=== PATIENT | male | born 1960 | race American Indian/Alaskan Native ===

== ENCOUNTER 2016-10-14 14:56 | Inpatient (IN) | payer OTHER ==
[2016-10-14] MEDS ORDERED: NACL 0.9% 500 ML 500 ML IV ONE (16:11)
[2016-10-14] MEDS ORDERED: ZOFRAN ONE (16:22)
[2016-10-14] MEDS ORDERED: TYLENOL ONE (16:44)
--- NOTE | 2016-10-14 16:51 | Emergency Department Report ---
HPI - General Chief Complaint: Extremity Problem,Nontraumatic Time Seen by Provider: 10/14/16 16:23 - HPI HPI: This is a 56-year-old Afro-[place]onese male who presents to the emergency department from home with complaint of a progressively worsening left foot wound and increasing foot pain has been going on for the past week. The patient says it started off as a large callus but then was a small wound that has progressively opened up and started draining. The past few days the patient is felt slightly dizzy, diaphoretic and the patient had some vomiting in triage. He also has been feeling febrile although he did not check his temperature at home. Patient has a history of asthma, insulin-dependent diabetes. 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 He has a primary care doctor but cannot member the name currently. No recent travel or sick contacts at home. He has not taken anything for symptoms prior to presentation. ED Past Medical Hx - Past Medical History Previous Medical History?: Yes Hx Asthma: Yes Hx Dementia: Yes - Surgical History Past Surgical History?: Yes Additional Surgical History: L shoulder. L toe amputation - Social History Smoking Status: Never Smoker Substance Use Type: Alcohol - Medications Home Medications: Home Medications Medication Instructions Recorded Confirmed Last Taken Type Glimepiride [Amaryl] 1 mg PO BID 10/14/16 10/14/16 Unknown History Lovastatin [Altoprev] 40 mg PO QHS 10/14/16 10/14/16 Unknown History metFORMIN [Glucophage] 500 mg PO BID 10/14/16 10/14/16 Unknown History ED Review of Systems ROS: Stated complaint: LT FOOT WOUND Other details as noted in HPI Comment: All other systems reviewed and negative Constitutional: chills, diaphoresis Eyes: denies: eye pain, eye discharge, vision change ENT: denies: ear pain, throat pain Respiratory: denies: cough, shortness of breath, wheezing Cardiovascular: denies: chest pain, palpitations Gastrointestinal: vomiting. denies: abdominal pain, diarrhea Genitourinary: denies: urgency, dysuria Musculoskeletal: joint swelling, arthralgia Skin: lesions. denies: pruritus Neurological: other (dizziness). denies: headache Physical Exam - Physical Exam Vital Signs: Vital Signs 10/14/16 16:00 Temperature 103 F H Pulse Rate 119 H Respiratory 16 Rate Blood Pressure 105/65 O2 Sat by Pulse 96 Oximetry Physical Exam: GENERAL: The patient is well-developed well-nourished. HEENT: Normocephalic. Atraumatic. Extraocular motions are intact. Patient has moist mucous membranes. Pupils equal reactive to light bilaterally. NECK: Supple. Trachea is midline. CHEST/LUNGS: Clear to auscultation. There is no respiratory distress noted. HEART/CARDIOVASCULAR: Regular. There is no tachycardia. There is no gallop rub or murmur. ABDOMEN: Abdomen is soft, nontender. Patient has normal bowel sounds. There is no abdominal distention. SKIN: Skin is hot and patient has some mild diaphoresis. There is a open wound to the plantar medial portion of the left distal foot near the great toe. There is a circular opening that is about 3 cm in diameter with some surrounding pale tissue that could be callus versus abscess. There is some tissue seen coming out of the wound and the wound is malodorous. NEURO: The patient is awake, alert, and oriented. The patient is cooperative. The patient has no focal neurologic deficits. The patient has normal speech. MUSCULOSKELETAL: There is some tenderness to palpation to the left foot where the patient has a diabetic wound/ulcer. The pedal pulses are not palpable but are evident with pencil Doppler. Cap refill less than 2 seconds. ED Course Vital Signs 10/14/16 16:00 Temperature 103 F H Pulse Rate 119 H Respiratory 16 Rate Blood Pressure 105/65 O2 Sat by Pulse 96 Oximetry ED Medical Decision Making - Lab Data Result diagrams: 10/14/16 16:45 10/14/16 16:45 - EKG Data -: EKG Interpreted by Me EKG shows normal: sinus rhythm, axis, intervals, QRS complexes, ST-T waves (Non- specific ST-T waves) Rate: tachycardia (118 bpm) - EKG Data When compared to previous EKG there are: previous EKG unavailable Interpretation: nonspecific ST-T wave myrna (with tachycardia) - Radiology Data Radiology results: image reviewed interpreted by me: Chest x-ray did not show any acute process. Heart is normal shape and size. No effusions. No pneumothorax. No signs of pneumonia seen. X-ray of the left foot shows a soft tissue defect consistent with his ulcerating wound. There is some gas seen throughout the soft tissue. No obvious signs of osteomyelitis. - Medical Decision Making 56-year-old male presents with a one-week history of present worsening wound to the left foot that appears to have become infected and causing sepsis. Patient has a fever of 103 Fahrenheit, some tachycardia. Labs show a mild leukocytosis , elevation and the lactic acid level. X-rays were done that shows concern for a gas-forming organism. No obvious signs of osteomyelitis. Blood cultures and wound cultures sent. Patient started on vancomycin, Zosyn and clindamycin. Patient will be admitted to hospital for further evaluation and treatment and has been accepted for admission by the hospitalist, Dr. Segal. - Differential Diagnosis sepsis, diabetic ulcer, abscess, osteomyelitis, gangrene Critical Care Time: No Critical care attestation.: If time is entered above; I have spent that time in minutes in the direct care of this critically ill patient, excluding procedure time. ED Disposition Clinical Impression: Sepsis affecting skin, Diabetic infection of left foot, Neutrophilic leukocytosis, Hyponatremia Type 2 diabetes mellitus Qualifiers: Diabetes mellitus complication status: with hyperglycemia Diabetes mellitus fci insulin use: without keno terminal operator use Qualified Code(s): E11.65 - Type 2 diabetes mellitus with hyperglycemia Disposition: OP ADMITTED IP TO THIS HOSP Is pt being admited?: Yes Condition: Stable Time of Disposition: 18:50
[2016-10-14] MEDS ORDERED: TYLENOL PO ONE (16:52)
[2016-10-14] MEDS ORDERED: ZOFRAN IV ONE (17:11)
[2016-10-14 17:20] LABS: Alanine Aminotransferase 13 units/L (7-56); Albumin 3.4 g/dL (3.9-5); Albumin/Globulin Ratio 0.7 %; Alkaline Phosphatase 90 units/L (35-129); Anion Gap 25 mmol/L; BUN/Creatinine Ratio 12.72; Bilirubin,Total 0.8 mg/dL (0.1-1.2); Blood Urea Nitrogen 14 mg/dL (9-20); Calcium 8.8 mg/dL (8.4-10.2); Carbon Dioxide 20 mmol/L (22-30); Glucose 192 mg/dL (75-100); Potassium 4.1 mmol/L (3.6-5.0); Sodium 128 mmol/L (137-145); Total Protein 8.1 g/dL (6.3-8.2)
[2016-10-14 17:22] LABS: Basophils % (Auto) 0.1 % (0.0-1.8); Hematocrit 39.6 % (35.5-45.6); Hemoglobin 12.9 gm/dl (11.8-15.2); Mean Corpuscular HGB Conc 33 % (32-34); Mean Corpuscular Hemoglobin 29 pg (28-32); Mean Corpuscular Volume 87 fl (84-94); Platelet Count 206 K/mm3 (140-440); Red Blood Count 4.53 M/mm3 (3.65-5.03); White Blood Count 12.9 K/mm3 (4.5-11.0)
[2016-10-14 17:32] LABS: INR 1.26 (0.87-1.13)
[2016-10-14] MEDS ORDERED: NACL 0.9% 1000 ML 1,000 ML IV ONE (17:57)
[2016-10-14] MEDS ORDERED: VANCOMYCIN/NS 1 GM/250 ML 1 GM/250 ML BAG IV ONE (17:58)
[2016-10-14] MEDS ORDERED: CLEOCIN 900 MG/50 mL 900 MG/50 ML BAG IV ONE (17:58)
--- NOTE | 2016-10-14 18:22 | Admit Criteria Form ---
Admission Criteria Documentation: SEPSIS and OTHER FEBRILE ILLNESS, W/O FOCAL INFECTION Clinical Indications for Admission to Inpatient Care ( Place 'X' for any and all applicable criteria): Admission is indicated for ANY ONE of the following (1)(2)(3)(4): [ ] I. Bacteremia [ ]II. Suspected or identified specific infection requiring hospitalization (eg, meningitis, endocarditis) [ ]III. Hemodynamic instability [ ]IV. Altered mental status [X]V. Failure or unavailability of outpatient antimicrobial treatment [ ]. Hypoxemia [ ]VII. Seizures [ ]VIII. High-risk febrile neutropenia [ ]IX. Need for parenteral antibiotic in patient who is likely to abuse vascular access device (eg, injection drug user) [A](7) [ ]X. Temperature greater than 104.9 degrees F (40.5 degrees C) (oral) [X]XI. Inpatient admission required rather than observation care because of ANY ONE of the following: [X]1) Specific infection identified that is too severe for outpatient treatment or observation care trial []2) Metabolic disorder (eg, hypoglycemia, hyperglycemia, metabolic acidosis) that is severe or persistent [ ]3) Temperature greater than 103.1 degrees F (39.5 degrees C) ( oral) that is not responsive to observation care treatment [ ]4) IV fluid to replace significant ongoing (eg, for over 24 hours) losses (> 3 L/m2 per day) [ ]5) Supplemental oxygen or respiratory treatments for over 24 hours that is performable only in acute inpatient setting [ ]6) Parenteral nutrition regimen need that must be implemented on inpatient basis [ ]7) Strict or protective (eg, laminar flow) isolation [ ]8) Other condition, treatment or monitoring requiring inpatient admission Extended stay beyond goal length of stay may be needed for(1)(3) [ ]a) Sepsis or septic shock(22) [ ]b) Positive blood cultures [ ]c) Insufficient oral intake [ ]d) High-risk febrile neutropenia(29)(30) [ ]e) Continued fever and clinical instability [ ]f) Clinically active comorbid illness (e.g,heart failure, renal failure , diabetes) The original [facility] [employer] content created by Nettie Martin has been revised. The portions of the content which have been revised are identified through the use of italic text or in bold, and [employer] has neither reviewed nor approved the modified material. All other unmodified content is copyright [facility]. Please see references footnoted in the original [facility] edition 2016 Admission Criteria Met: Yes
--- NOTE | 2016-10-14 18:30 | XRay Report ---
FINAL REPORT PROCEDURE: Right foot series TECHNIQUE: Right foot radiographs, AP, lateral, and oblique views. CPT 76107 HISTORY: Soft tissue wound. Evaluate osteomyelitis COMPARISON: No prior studies are available for comparison. FINDINGS: There are large amount of soft tissue gas bubbles seen anterior and posterior to the joint space between 1st and 2nd toes. The appearance suggest infection with gas-forming organism. There is deformity of the proximal phalanx of the 1st toe consistent with an old healed fracture. There is moderate hallux valgus deformity and mild osteoarthritis in the MTP joint. The 2nd toe distal to the proximal end of the proximal phalanx has been previously amputated. No focal bone loss or abnormal periosteal reaction is seen that would suggest osteomyelitis. No radiopaque foreign bodies are seen. No acute fracture or dislocation is seen. IMPRESSION: Diffuse soft tissue infection with gas-forming organism. No radiopaque foreign bodies are seen. No bony changes are seen that would suggest acute osteomyelitis. Old fracture proximal phalanx great toe. Hallux valgus deformity and arthritis as described. Prior amputation 2nd toe as described above.
[2016-10-14] MEDS ORDERED: ZOSYN/NS 4.5GM/100ML 4.5 GM/100 ML VIAL IV ONE (19:06)
[2016-10-14] MEDS ORDERED: DULCOLAX PR PRN (20:19)
[2016-10-14] MEDS ORDERED: MILK OF MAGNESIA PO PRN (20:19)
[2016-10-14] MEDS ORDERED: ZOFRAN IV PRN (20:19)
[2016-10-14] MEDS ORDERED: D50W (25GM) IV PRN (20:19)
--- NOTE | 2016-10-14 20:41 | History and Physical Report ---
History of Present Illness Date of examination: 10/14/16 Chief complaint: left foot sore for 2-3 weeks History of present illness: 56-year-old -[place] male with history of type 2 diabetes for the past 10 years was seen in the emergency room with complaints of left foot ulceration for the past 2-3 weeks and associated with intermittent pain. He denies any fever or chills but says he started having chills and fever after coming to the emergency department. She does admit that he never checked his temperature at home. The present symptoms started after he tried to scrape the callus over left foot. And this led to progressively worsening sore in the area. X-ray of the left foot showed gas-formation with soft tissue swelling. He is now admitted for cellulitis and diabetic foot infection. He was noted to have of temperature of 99.5 with moderate leukocytosis. We will treat the patient for possible sepsis. Cultures were drawn F F Past History Past Medical History: diabetes, hyperlipidemia, other (asthma) Past Surgical History: Other (amputation of left second toe and left shoulder surgery) Social history: no significant social history Family history: diabetes Medications and Allergies Allergies Allergy/AdvReac Type Severity Reaction Status Date / Time No Known Allergies Allergy Unverified 10/14/16 16:04 Home Medications Medication Instructions Recorded Confirmed Last Taken Type Glimepiride [Amaryl] 1 mg PO BID 10/14/16 10/14/16 Unknown History Lovastatin [Altoprev] 40 mg PO QHS 10/14/16 10/14/16 Unknown History metFORMIN [Glucophage] 500 mg PO BID 10/14/16 10/14/16 Unknown History Active Meds: Active Medications Acetaminophen (Tylenol) 650 mg PO Q4H PRN PRN Reason: Pain MILD(1-3)/Fever >100.5/[place] Bisacodyl (Dulcolax) 10 mg VT QDAY PRN PRN Reason: Constipation unrelieved by MOM Dextrose (D50w (25gm)) 50 ml IV PRN PRN PRN Reason: Hypoglycemia Glimepiride (Amaryl) 2 mg PO DAILY [facility] Heparin Sodium (Porcine) (Heparin) 5,000 unit SUB-Q Q8HR LISA Clindamycin HCl (Cleocin 900 Mg/50 Ml) 900 mg in 50 mls @ 100 mls/hr IV Q8HR LISA PRN Reason: Protocol Sodium Chloride (Nacl 0.9% 1000 Ml) 1,000 mls @ 75 mls/hr IV DIRECT LISA Piperacillin Sod/Tazobactam Sod (Zosyn/Ns 4.5gm/100ml) 4.5 gm in 100 mls @ 200 mls/hr IV Q8H LISA PRN Reason: Protocol Insulin Aspart (Novolog) 0 units SUB-Q ACHS LISA PRN Reason: Protocol Magnesium Hydroxide (Milk Of Magnesia) 30 ml PO Q4H PRN PRN Reason: Constipation Ondansetron HCl (Zofran) 4 mg IV Q8H PRN PRN Reason: N/V unrelieved by Reglan Oxycodone/Acetaminophen (Percocet 5/325) 1 tab PO Q6H PRN PRN Reason: Pain, Moderate (4-6) Simvastatin (Zocor) 20 mg PO QHS LISA Review of Systems Constitutional: fever, chills, no weight loss, no weakness Ears, nose, mouth and throat: no ear pain, no ear discharge, no sore throat, no headache Cardiovascular: no chest pain, no palpitations, no syncope, no shortness of breath, no high blood pressure Respiratory: no cough, no shortness of breath, no wheezing Gastrointestinal: no abdominal pain, no nausea, no vomiting, no diarrhea, no constipation, no melena Genitourinary Male: no dysuria, no hematuria, no urinary frequency, no urinary hesitancy, no nocturia Rectal: no pain Musculoskeletal: no neck pain, no low back pain Integumentary: no rash Neurological: no seizures, no syncope Psychiatric: no anxiety, no depression Endocrine: no polyphagia, no excessive thirst, no polydipsia, no polyuria, no nocturia Exam - Constitutional Vitals: Temp Pulse Resp BP Pulse Ox 99.5 F 102 H 22 134/68 98 10/14/16 18:42 10/14/16 19:40 10/14/16 19:40 10/14/16 19:40 10/14/16 19:40 General appearance: Present: no acute distress, well-nourished - EENT Eyes: Present: PERRL, EOM intact ENT: hearing intact, clear oral mucosa, no thrush - Neck Neck: Present: supple, normal ROM. Absent: masses or JVD - Respiratory Respiratory effort: normal Respiratory: bilateral: CTA - Cardiovascular Rhythm: regular Heart Sounds: Present: S1 & S2 - Extremities Extremities: pulses intact (both dorsalis pedis pulsations are palpable) Extremity abnormal: edema (left foot is swollen nontender with eschar on the bottom of the foot proximally with discoloration) Peripheral Pulses: within normal limits - Abdominal General gastrointestinal: Present: soft, non-tender. Absent: hepatomegaly, splenomegaly - Rectal Rectal Exam: deferred - Integumentary Integumentary: Present: clear - Musculoskeletal Musculoskeletal: strength equal bilaterally - Psychiatric Psychiatric: appropriate mood/affect - Neurologic Neurologic: no focal deficits, moves all extremities Results - Labs CBC & Chem 7: 10/14/16 16:45 10/14/16 16:45 Labs: Abnormal lab results 10/14/16 10/14/16 10/14/16 Range/Units 16:43 16:45 16:45 WBC 12.9 H (4.5-11.0) K/mm3 RDW 13.0 L (13.2-15.2) % Lymph % (Auto) 3.1 L (13.4-35.0) % [place] % (Auto) 9.5 H (0.0-7.3) % Lymph # 0.4 L (1.2-5.4) K/mm3 [place] # 1.2 H (0.0-0.8) K/mm3 Seg Neutrophils % 87.3 H (40.0-70.0) % Seg Neutrophils # 11.2 H (1.8-7.7) K/mm3 PT 15.7 H (12.2-14.9) Sec. INR 1.26 H (0.87-1.13) Sodium (137-145) mmol/L Chloride (98-107) mmol/L Carbon Dioxide (22-30) mmol/L Glucose (75-100) mg/dL POC Glucose 202 H (70-105) Lactic Acid (0.7-2.0) mmol/L Albumin (3.9-5) g/dL 10/14/16 10/14/16 Range/Units 16:45 16:45 WBC (4.5-11.0) K/mm3 RDW (13.2-15.2) % Lymph % (Auto) (13.4-35.0) % [place] % (Auto) (0.0-7.3) % Lymph # (1.2-5.4) K/mm3 [place] # (0.0-0.8) K/mm3 Seg Neutrophils % (40.0-70.0) % Seg Neutrophils # (1.8-7.7) K/mm3 PT (12.2-14.9) Sec. INR (0.87-1.13) Sodium 128 L (137-145) mmol/L Chloride 87.0 L (98-107) mmol/L Carbon Dioxide 20 L (22-30) mmol/L Glucose 192 H (75-100) mg/dL POC Glucose (70-105) Lactic Acid 2.3 H* (0.7-2.0) mmol/L Albumin 3.4 L (3.9-5) g/dL Assessment and Plan - Patient Problems (1) Sepsis affecting skin Current Visit: Yes Status: Acute Plan to address problem: Blood cultures 2 sets Check lactic acid level Suspected sepsis based on tachycardia leukocytosis and fever On the patient on Zosyn and clindamycin with suspected gas forming cellulitis EKG shows the heart rate of 118 bpm, sinus tachycardia and nonspecific changes in 1 and aVL We will leave it to the hospitalist to seek cardiology consult if necessary (2) Type 2 diabetes mellitus Current Visit: Yes Status: Acute Qualifiers: Diabetes mellitus complication status: D Diabetes mellitus complication detail: D Diabetic retinopathy severity: D Proliferative retinopathy type: P Diabetes mellitus macular edema: D Diabetes mellitus tank terminal gauger insulin use : D Laterality: L Chronic kidney disease stage: C Plan to address problem: monitor blood sugars with sliding scale coverage Check A1c Continue glimepiride (3) Diabetic infection of left foot Current Visit: Yes Status: Acute Plan to address problem: Continue antibiotics as ordered We will request a vascular consult to rule out peripheral vascular disease and wound care nurse consult (4) Hyponatremia Current Visit: Yes Status: Acute Plan to address problem: Start the patient on normal saline 100 and electrolytes (5) Neutrophilic leukocytosis Current Visit: Yes Status: Acute Plan to address problem: Secondary to infection
[2016-10-14] MEDS ORDERED: PERCOCET 5/325 ONE (20:50)
[2016-10-14] MEDS: PERCOCET 5/325 PO PRN (20:55)
[2016-10-14 21:39] LABS: Bilirubin,Urine NEG (Negative); Blood,Urine NEG (Negative); Ketones,Urine 20 mg/dL (Negative); Leukocyte Esterase,Urine NEG (Negative); Nitrite,Urine NEG (Negative); Protein,Urine <15 mg/dL mg/dL (Negative); RBC,Urine < 1.0 /HPF (0.0-6.0); Urobilinogen,Urine < 2.0 mg/dL (<2.0); WBC,Urine < 1.0 /HPF (0.0-6.0)
[2016-10-14] MEDS ORDERED: NON-FORMULARY (Lovastatin [Altoprev] 40 MG) PO SCH (22:00)
[2016-10-14] MEDS: CLEOCIN 900 MG/50 mL 900 MG/50 ML BAG IV SCH (23:09)
[2016-10-14] MEDS: NACL 0.9% 1000 ML 1,000 ML IV SCH (23:09)
[2016-10-14] MEDS: HEPARIN SUB-Q SCH (23:10)
[2016-10-14] MEDS: ZOCOR PO SCH (23:10)
[2016-10-14] MEDS: NOVOLOG SUB-Q SCH (23:12)
[2016-10-15] MEDS: ZOSYN/NS 4.5GM/100ML 4.5 GM/100 ML VIAL IV SCH ×3 (04:32→22:09)
[2016-10-15 05:54] LABS: Basophils % (Auto) 0.2 % (0.0-1.8); Eosinophils % (Auto) 0.1 % (0.0-4.3); Hematocrit 36.9 % (35.5-45.6); Hemoglobin 11.8 gm/dl (11.8-15.2); Mean Corpuscular HGB Conc 32 % (32-34); Mean Corpuscular Hemoglobin 28 pg (28-32); Mean Corpuscular Volume 88 fl (84-94); Platelet Count 213 K/mm3 (140-440); Red Blood Count 4.21 M/mm3 (3.65-5.03); Red Cell Distribution Width 13.1 % (13.2-15.2); White Blood Count 15.4 K/mm3 (4.5-11.0)
[2016-10-15] MEDS: CLEOCIN 900 MG/50 mL 900 MG/50 ML BAG IV SCH ×3 (06:05→22:09)
[2016-10-15] MEDS: HEPARIN SUB-Q SCH ×3 (06:05→22:11)
[2016-10-15 06:15] LABS: Anion Gap 19 mmol/L; BUN/Creatinine Ratio 16.25; Blood Urea Nitrogen 13 mg/dL (9-20); Calcium 8.4 mg/dL (8.4-10.2); Carbon Dioxide 25 mmol/L (22-30); Chloride 94.5 mmol/L (98-107); Glucose 186 mg/dL (75-100); Potassium 4.3 mmol/L (3.6-5.0); Sodium 134 mmol/L (137-145)
[2016-10-15] MEDS: NOVOLOG SUB-Q SCH ×5 (08:43→22:21)
--- NOTE | 2016-10-15 10:27 | XRay Report ---
AP CHEST :10/14/16 14:56:00 CLINICAL: Sepsis. COMPARISON:06/06/12 FINDINGS: Normal heart and pulmonary vasculature. Mild aortic ectasia. Mild left lower lobe subsegmental atelectasis. No airspace disease or pleural effusion. Degenerative change of the spine. IMPRESSION: No CHF or pneumonia.
[2016-10-15] MEDS ORDERED: ZOFRAN IV PRN (12:51)
[2016-10-15] MEDS: PERCOCET 5/325 PO PRN ×2 (13:05→22:15)
[2016-10-15] MEDS: AMARYL PO SCH (13:06)
[2016-10-15] MEDS: NACL 0.9% 1000 ML 1,000 ML IV SCH (14:19)
--- NOTE | 2016-10-15 15:42 | Progress Note ---
Assessment and Plan Assessment and plan: (1) Sepsis affecting skin Current Visit: Yes Status: Acute Plan to address problem: Blood cultures 2 sets Suspected sepsis based on tachycardia leukocytosis and fever cont the patient on Zosyn and clindamycin with suspected gas forming cellulitis (2) Type 2 diabetes mellitus Current Visit: Yes Status: Acute Qualifiers: Diabetes mellitus complication status: D Diabetes mellitus complication detail: D Diabetic retinopathy severity: D Proliferative retinopathy type: P Diabetes mellitus macular edema: D Diabetes mellitus medical terminologist insulin use : D Laterality: L Chronic kidney disease stage: C Plan to address problem: monitor blood sugars with sliding scale coverage Continue glimepiride a1c 8.6 (3) Diabetic infection of left foot Current Visit: Yes Status: Acute Plan to address problem: Continue antibiotics as ordered wound care and wound cx (4) Hyponatremia Current Visit: Yes Status: Acute Plan to address problem: cont patient on normal saline monitor electrolytes (5) Neutrophilic leukocytosis Current Visit: Yes Status: Acute Plan to address problem: Secondary to infection Hospitalist Physical - Constitutional Vitals: Temp Pulse Resp BP Pulse Ox 98.3 F 94 H 18 111/74 99 10/15/16 08:15 10/15/16 08:15 10/15/16 08:15 10/15/16 08:15 10/15/16 08:15 General appearance: Present: no acute distress, well-nourished Results - Labs CBC & Chem 7: 10/15/16 05:24 10/15/16 05:24 Labs: Laboratory Last Values WBC 15.4 K/mm3 (4.5-11.0) H 10/15/16 05:24 RBC 4.21 M/mm3 (3.65-5.03) 10/15/16 05:24 Hgb 11.8 gm/dl (11.8-15.2) 10/15/16 05:24 Hct 36.9 % (35.5-45.6) 10/15/16 05:24 MCV 88 fl (84-94) 10/15/16 05:24 MCH 28 pg (28-32) 10/15/16 05:24 MCHC 32 % (32-34) 10/15/16 05:24 RDW 13.1 % (13.2-15.2) L 10/15/16 05:24 Plt Count 213 K/mm3 (140-440) 10/15/16 05:24 Lymph % (Auto) 3.2 % (13.4-35.0) L 10/15/16 05:24 [place] % (Auto) 10.7 % (0.0-7.3) H 10/15/16 05:24 Eos % (Auto) 0.1 % (0.0-4.3) 10/15/16 05:24 Baso % (Auto) 0.2 % (0.0-1.8) 10/15/16 05:24 Lymph # 0.5 K/mm3 (1.2-5.4) L 10/15/16 05:24 [place] # 1.6 K/mm3 (0.0-0.8) H 10/15/16 05:24 Eos # 0.0 K/mm3 (0.0-0.4) 10/15/16 05:24 Baso # 0.0 K/mm3 (0.0-0.1) 10/15/16 05:24 Seg Neutrophils % 85.8 % (40.0-70.0) H 10/15/16 05:24 Seg Neutrophils # 13.2 K/mm3 (1.8-7.7) H 10/15/16 05:24 PT 15.7 Sec. (12.2-14.9) H 10/14/16 16:45 INR 1.26 (0.87-1.13) H 10/14/16 16:45 VBG pH 7.386 (7.320-7.420) 10/14/16 16:45 Sodium 134 mmol/L (137-145) L 10/15/16 05:24 Potassium 4.3 mmol/L (3.6-5.0) 10/15/16 05:24 Chloride 94.5 mmol/L (98-107) L 10/15/16 05:24 Carbon Dioxide 25 mmol/L (22-30) 10/15/16 05:24 Anion Gap 19 mmol/L 10/15/16 05:24 BUN 13 mg/dL (9-20) 10/15/16 05:24 Creatinine 0.8 mg/dL (0.8-1.5) 10/15/16 05:24 Estimated GFR > 60 ml/min 10/15/16 05:24 BUN/Creatinine Ratio 16.25 % 10/15/16 05:24 Glucose 186 mg/dL (75-100) H 10/15/16 05:24 POC Glucose 184 (70-105) H 10/15/16 12:20 Hemoglobin A1c 8.6 % (4-6) H 10/14/16 20:40 Lactic Acid 1.1 mmol/L (0.7-2.0) 10/14/16 20:40 Calcium 8.4 mg/dL (8.4-10.2) 10/15/16 05:24 Total Bilirubin 0.8 mg/dL (0.1-1.2) 10/14/16 16:45 AST 17 units/L (5-40) 10/14/16 16:45 ALT 13 units/L (7-56) 10/14/16 16:45 Alkaline Phosphatase 90 units/L (35-129) 10/14/16 16:45 Total Protein 8.1 g/dL (6.3-8.2) 10/14/16 16:45 Albumin 3.4 g/dL (3.9-5) L 10/14/16 16:45 Albumin/Globulin Ratio 0.7 % 10/14/16 16:45 Urine Color Yellow (Yellow) 10/14/16 21:00 Urine Turbidity Clear (Clear) 10/14/16 21:00 Urine pH 5.0 (5.0-7.0) 10/14/16 21:00 Ur Specific [place] 1.010 (1.003-1.030) 10/14/16 21:00 Urine Protein <15 mg/dl mg/dL (Negative) 10/14/16 21:00 Urine Glucose (UA) >=500 mg/dL (Negative) 10/14/16 21:00 Urine Ketones 20 mg/dL (Negative) 10/14/16 21:00 Urine Blood Neg (Negative) 10/14/16 21:00 Urine Nitrite Neg (Negative) 10/14/16 21:00 Urine Bilirubin Neg (Negative) 10/14/16 21:00 Urine Urobilinogen < 2.0 mg/dL (<2.0) 10/14/16 21:00 Ur Leukocyte Esterase Neg (Negative) 10/14/16 21:00 Urine WBC (Auto) < 1.0 /HPF (0.0-6.0) 10/14/16 21:00 Urine RBC (Auto) < 1.0 /HPF (0.0-6.0) 10/14/16 21:00
[2016-10-15] MEDS: ZOCOR PO SCH (22:10)
[2016-10-16] MEDS: ZOSYN/NS 4.5GM/100ML 4.5 GM/100 ML VIAL IV SCH ×3 (04:33→20:40)
[2016-10-16] MEDS: PERCOCET 5/325 PO PRN ×4 (04:33→23:46)
[2016-10-16] MEDS: CLEOCIN 900 MG/50 mL 900 MG/50 ML BAG IV SCH ×3 (05:37→22:17)
[2016-10-16] MEDS: HEPARIN SUB-Q SCH ×3 (05:38→22:19)
[2016-10-16 07:03] LABS: Basophils % (Auto) 0.3 % (0.0-1.8); Eosinophils % (Auto) 0.5 % (0.0-4.3); Hematocrit 35.6 % (35.5-45.6); Hemoglobin 11.3 gm/dl (11.8-15.2); Mean Corpuscular HGB Conc 32 % (32-34); Mean Corpuscular Hemoglobin 28 pg (28-32); Mean Corpuscular Volume 88 fl (84-94); Platelet Count 219 K/mm3 (140-440); Red Blood Count 4.05 M/mm3 (3.65-5.03); Red Cell Distribution Width 13.1 % (13.2-15.2); White Blood Count 12.8 K/mm3 (4.5-11.0)
[2016-10-16 07:21] LABS: Anion Gap 20 mmol/L; Blood Urea Nitrogen 12 mg/dL (9-20); Calcium 8.2 mg/dL (8.4-10.2); Carbon Dioxide 23 mmol/L (22-30); Glucose 117 mg/dL (75-100); Potassium 3.8 mmol/L (3.6-5.0); Sodium 136 mmol/L (137-145)
[2016-10-16] MEDS: NOVOLOG SUB-Q SCH ×4 (07:30→22:29)
[2016-10-16] MEDS: AMARYL PO SCH (11:30)
[2016-10-16] MEDS: NACL 0.9% 1000 ML 1,000 ML IV SCH (12:29)
--- NOTE | 2016-10-16 14:33 | Progress Note ---
Assessment and Plan Assessment and plan: (1) Sepsis affecting skin Current Visit: Yes Status: Acute Plan to address problem: Blood cultures 2 sets obtained Suspected sepsis based on tachycardia leukocytosis and fever cont the patient on Zosyn and clindamycin with suspected gas forming cellulitis will get MRI of the LLE Cx growing gm positive cocci in chain (2) Type 2 diabetes mellitus Current Visit: Yes Status: Acute Qualifiers: Diabetes mellitus complication status: D Diabetes mellitus complication detail: D Diabetic retinopathy severity: D Proliferative retinopathy type: P Diabetes mellitus macular edema: D Diabetes mellitus manager intermediate insulin use : D Laterality: L Chronic kidney disease stage: C Plan to address problem: monitor blood sugars with sliding scale coverage Continue glimepiride, add metformin a1c 8.6 (3) Diabetic infection of left foot Current Visit: Yes Status: Acute Plan to address problem: Continue antibiotics as ordered follow wound care and wound cx (4) Hyponatremia Current Visit: Yes Status: Acute Plan to address problem: cont patient on normal saline monitor electrolytes (5) Neutrophilic leukocytosis Current Visit: Yes Status: Acute Plan to address problem: Secondary to infection History Interval history: Patient seen and examined. c/o LLE pain and swelling ordered MRI for possible osteomylitis wound cx pending Hospitalist Physical - Physical exam Narrative exam: General appearance: Present: no acute distress, well-nourished - EENT Eyes: Present: PERRL, EOM intact ENT: hearing intact, clear oral mucosa, no thrush - Neck Neck: Present: supple, normal ROM. Absent: masses or JVD - Respiratory Respiratory effort: normal Respiratory: bilateral: CTA - Cardiovascular Rhythm: regular Heart Sounds: Present: S1 & S2 - Extremities Extremities: pulses intact (both dorsalis pedis pulsations are palpable) Extremity abnormal: left foot with wound dressing Peripheral Pulses: within normal limits - Abdominal General gastrointestinal: Present: soft, non-tender. Absent: hepatomegaly, splenomegaly - Rectal Rectal Exam: deferred - Integumentary Integumentary: Present: clear - Musculoskeletal Musculoskeletal: strength equal bilaterally - Psychiatric Psychiatric: appropriate mood/affect - Neurologic Neurologic: no focal deficits, moves all extremities - Constitutional Vitals: Temp Pulse Resp BP Pulse Ox 98.5 F 88 16 131/84 100 10/16/16 07:35 10/16/16 07:35 10/16/16 07:35 10/16/16 07:35 10/16/16 07:35 General appearance: Present: no acute distress, well-nourished Results - Labs CBC & Chem 7: 10/16/16 06:15 10/16/16 06:15 Labs: Laboratory Last Values WBC 12.8 K/mm3 (4.5-11.0) H 10/16/16 06:15 RBC 4.05 M/mm3 (3.65-5.03) 10/16/16 06:15 Hgb 11.3 gm/dl (11.8-15.2) L 10/16/16 06:15 Hct 35.6 % (35.5-45.6) 10/16/16 06:15 MCV 88 fl (84-94) 10/16/16 06:15 MCH 28 pg (28-32) 10/16/16 06:15 MCHC 32 % (32-34) 10/16/16 06:15 RDW 13.1 % (13.2-15.2) L 10/16/16 06:15 Plt Count 219 K/mm3 (140-440) 10/16/16 06:15 Lymph % (Auto) 5.3 % (13.4-35.0) L 10/16/16 06:15 [place] % (Auto) 9.4 % (0.0-7.3) H 10/16/16 06:15 Eos % (Auto) 0.5 % (0.0-4.3) 10/16/16 06:15 Baso % (Auto) 0.3 % (0.0-1.8) 10/16/16 06:15 Lymph # 0.7 K/mm3 (1.2-5.4) L 10/16/16 06:15 [place] # 1.2 K/mm3 (0.0-0.8) H 10/16/16 06:15 Eos # 0.1 K/mm3 (0.0-0.4) 10/16/16 06:15 Baso # 0.0 K/mm3 (0.0-0.1) 10/16/16 06:15 Seg Neutrophils % 84.5 % (40.0-70.0) H 10/16/16 06:15 Seg Neutrophils # 10.8 K/mm3 (1.8-7.7) H 10/16/16 06:15 PT 15.7 Sec. (12.2-14.9) H 10/14/16 16:45 INR 1.26 (0.87-1.13) H 10/14/16 16:45 VBG pH 7.386 (7.320-7.420) 10/14/16 16:45 Sodium 136 mmol/L (137-145) L 10/16/16 06:15 Potassium 3.8 mmol/L (3.6-5.0) 10/16/16 06:15 Chloride 97.0 mmol/L (98-107) L 10/16/16 06:15 Carbon Dioxide 23 mmol/L (22-30) 10/16/16 06:15 Anion Gap 20 mmol/L 10/16/16 06:15 BUN 12 mg/dL (9-20) 10/16/16 06:15 Creatinine 0.8 mg/dL (0.8-1.5) 10/16/16 06:15 Estimated GFR > 60 ml/min 10/16/16 06:15 BUN/Creatinine Ratio 15.00 % 10/16/16 06:15 Glucose 117 mg/dL (75-100) H 10/16/16 06:15 POC Glucose 101 (70-105) 10/16/16 12:31 Hemoglobin A1c 8.6 % (4-6) H 10/14/16 20:40 Lactic Acid 1.1 mmol/L (0.7-2.0) 10/14/16 20:40 Calcium 8.2 mg/dL (8.4-10.2) L 10/16/16 06:15 Total Bilirubin 0.8 mg/dL (0.1-1.2) 10/14/16 16:45 AST 17 units/L (5-40) 10/14/16 16:45 ALT 13 units/L (7-56) 10/14/16 16:45 Alkaline Phosphatase 90 units/L (35-129) 10/14/16 16:45 Total Protein 8.1 g/dL (6.3-8.2) 10/14/16 16:45 Albumin 3.4 g/dL (3.9-5) L 10/14/16 16:45 Albumin/Globulin Ratio 0.7 % 10/14/16 16:45 Urine Color Yellow (Yellow) 10/14/16 21:00 Urine Turbidity Clear (Clear) 10/14/16 21:00 Urine pH 5.0 (5.0-7.0) 10/14/16 21:00 Ur Specific [place] 1.010 (1.003-1.030) 10/14/16 21:00 Urine Protein <15 mg/dl mg/dL (Negative) 10/14/16 21:00 Urine Glucose (UA) >=500 mg/dL (Negative) 10/14/16 21:00 Urine Ketones 20 mg/dL (Negative) 10/14/16 21:00 Urine Blood Neg (Negative) 10/14/16 21:00 Urine Nitrite Neg (Negative) 10/14/16 21:00 Urine Bilirubin Neg (Negative) 10/14/16 21:00 Urine Urobilinogen < 2.0 mg/dL (<2.0) 10/14/16 21:00 Ur Leukocyte Esterase Neg (Negative) 10/14/16 21:00 Urine WBC (Auto) < 1.0 /HPF (0.0-6.0) 10/14/16 21:00 Urine RBC (Auto) < 1.0 /HPF (0.0-6.0) 10/14/16 21:00
[2016-10-16] MEDS: TYLENOL PO PRN (22:16)
[2016-10-16] MEDS: ZOCOR PO SCH (22:19)
--- NOTE | 2016-10-17 01:51 | Magnetic Resonance Report ---
FINAL REPORT EXAM: MR [place] NONJOINT LT WO/W CON HISTORY: possible osteomylitis COMPARISON: Plain films of the left foot from October 14, 2016. FINDINGS: Prior amputation of the 2nd toe. Small portion of the proximal 2nd phalanx remains. Prominent subcutaneous fat stranding and pockets a gas at the dorsum of the 1st proximal phalanx and 1st MTP joint. Less prominent skin thickening and subcutaneous fat stranding at the plantar aspect of the 1st MTP joint and 1st proximal phalanx. Tiny foci of T1 and T2 hyperintensity within the soft tissue swelling at the dorsum of the 1st toe compatible tiny pockets a gas. Ill-defined fluid collection interposed between the 1st and 2nd digits concerning for phlegmon/early organizing abscess. This ill-defined fluid collection in greatest axial dimension measures 5.1 x 1.1 centimeters and in craniocaudal dimension measures approximately 4.1 centimeters. Mild edema like signal and enhancement at the lateral base of the 1st proximal phalanx. This may reflect reactive edema. No definite bony erosive changes. Very early osteomyelitis cannot be excluded. Edema like signal involving the intrinsic musculature the plantar aspect of the foot. This may reflect reactive edema. Myositis cannot be excluded. Stable moderate hallux valgus deformity with moderate narrowing of the 1st MTP joint and mild narrowing of the interphalangeal joints. IMPRESSION: Findings compatible with soft tissue infection involving a gas forming organizing with phlegmon/early organizing abscess interposed between the 1st and 2nd digits. Mild edema like signal enhancement involving the lateral base of the 1st proximal phalanx. No definite bony erosive changes. This may reflect reactive edema. Very early developing osteomyelitis cannot be excluded. Moderate hallux valgus deformity and degenerative changes of the 1st MTP joint. Prior partial amputation of the 2nd toe.
[2016-10-17] MEDS: ZOSYN/NS 4.5GM/100ML 4.5 GM/100 ML VIAL IV SCH ×3 (04:39→20:30)
[2016-10-17] MEDS: NACL 0.9% 1000 ML 1,000 ML IV SCH (04:40)
[2016-10-17 05:10] LABS: Basophils % (Auto) 0.4 % (0.0-1.8); Hematocrit 36.4 % (35.5-45.6); Hemoglobin 11.5 gm/dl (11.8-15.2); Mean Corpuscular HGB Conc 32 % (32-34); Mean Corpuscular Hemoglobin 28 pg (28-32); Mean Corpuscular Volume 89 fl (84-94); Platelet Count 246 K/mm3 (140-440); Red Blood Count 4.11 M/mm3 (3.65-5.03); White Blood Count 11.2 K/mm3 (4.5-11.0)
[2016-10-17] MEDS: D5W IV SCH ×2 (06:13→14:31)
[2016-10-17] MEDS: CLEOCIN IV SCH ×2 (06:13→14:31)
[2016-10-17] MEDS: TYLENOL PO PRN (06:21)
[2016-10-17] MEDS: HEPARIN SUB-Q SCH ×3 (06:23→21:41)
[2016-10-17] MEDS: NOVOLOG SUB-Q SCH ×4 (08:23→22:51)
[2016-10-17] MEDS: GLUCOPHAGE PO SCH ×2 (09:16→17:46)
[2016-10-17] MEDS: AMARYL PO SCH (09:16)
[2016-10-17] MEDS: PERCOCET 5/325 PO PRN ×3 (09:16→22:55)
[2016-10-17] MEDS: MORPHINE IV PRN (13:16)
--- NOTE | 2016-10-17 14:28 | Progress Note ---
Assessment and Plan Assessment and plan: (1) Sepsis affecting skin Current Visit: Yes Status: Acute Plan to address problem: Blood cultures 2 sets negative Suspected sepsis based on tachycardia leukocytosis and fever cont the patient on Zosyn and clindamycin with suspected gas forming cellulitis Cx growing gm positive cocci in chain pairs along with gram-negative rods ID consult and will follow recommendation (2) Type 2 diabetes mellitus Current Visit: Yes Status: Acute Qualifiers: Diabetes mellitus complication status: D Diabetes mellitus complication detail: D Diabetic retinopathy severity: D Proliferative retinopathy type: P Diabetes mellitus macular edema: D Diabetes mellitus skilled nursing insulin use : D Laterality: L Chronic kidney disease stage: C Plan to address problem: monitor blood sugars with sliding scale coverage Continue glimepiride, metformin a1c 8.6 (3) Diabetic infection of left foot Current Visit: Yes Status: Acute Plan to address problem: Continue antibiotics as ordered follow wound care and vascular surgery recommendation MRI of the left foot is showing possible early osteomyelitis (4) Hyponatremia Current Visit: Yes Status: Acute Plan to address problem: cont patient on normal saline monitor electrolytes (5) Neutrophilic leukocytosis Current Visit: Yes Status: Acute Plan to address problem: Secondary to infection History Interval history: Patient seen and examined. c/o LLE pain and swelling Tolerating diet, denies any chest pain or shortness of breath Hospitalist Physical - Physical exam Narrative exam: General appearance: Present: no acute distress, well-nourished - EENT Eyes: Present: PERRL, EOM intact ENT: hearing intact, clear oral mucosa, no thrush - Neck Neck: Present: supple, normal ROM. Absent: masses or JVD - Respiratory Respiratory effort: normal Respiratory: bilateral: CTA - Cardiovascular Rhythm: regular Heart Sounds: Present: S1 & S2 - Extremities Extremities: pulses intact (both dorsalis pedis pulsations are palpable) Extremity abnormal: left foot with wound dressing Peripheral Pulses: within normal limits - Abdominal General gastrointestinal: Present: soft, non-tender. Absent: hepatomegaly, splenomegaly - Rectal Rectal Exam: deferred - Integumentary Integumentary: Present: clear - Musculoskeletal Musculoskeletal: strength equal bilaterally - Psychiatric Psychiatric: appropriate mood/affect - Neurologic Neurologic: no focal deficits, moves all extremities - Constitutional Vitals: Temp Pulse Resp BP Pulse Ox 98.5 F 88 16 147/86 100 10/17/16 12:36 10/17/16 12:36 10/17/16 13:16 10/17/16 12:36 10/17/16 08:18 General appearance: Present: no acute distress, well-nourished Results - Labs CBC & Chem 7: 10/17/16 04:51 10/16/16 06:15 Labs: Laboratory Last Values WBC 11.2 K/mm3 (4.5-11.0) H 10/17/16 04:51 RBC 4.11 M/mm3 (3.65-5.03) 10/17/16 04:51 Hgb 11.5 gm/dl (11.8-15.2) L 10/17/16 04:51 Hct 36.4 % (35.5-45.6) 10/17/16 04:51 MCV 89 fl (84-94) 10/17/16 04:51 MCH 28 pg (28-32) 10/17/16 04:51 MCHC 32 % (32-34) 10/17/16 04:51 RDW 13.0 % (13.2-15.2) L 10/17/16 04:51 Plt Count 246 K/mm3 (140-440) 10/17/16 04:51 Lymph % (Auto) 8.1 % (13.4-35.0) L 10/17/16 04:51 [place] % (Auto) 9.8 % (0.0-7.3) H 10/17/16 04:51 Eos % (Auto) 1.0 % (0.0-4.3) 10/17/16 04:51 Baso % (Auto) 0.4 % (0.0-1.8) 10/17/16 04:51 Lymph # 0.9 K/mm3 (1.2-5.4) L 10/17/16 04:51 [place] # 1.1 K/mm3 (0.0-0.8) H 10/17/16 04:51 Eos # 0.1 K/mm3 (0.0-0.4) 10/17/16 04:51 Baso # 0.0 K/mm3 (0.0-0.1) 10/17/16 04:51 Seg Neutrophils % 80.7 % (40.0-70.0) H 10/17/16 04:51 Seg Neutrophils # 9.0 K/mm3 (1.8-7.7) H 10/17/16 04:51 PT 15.7 Sec. (12.2-14.9) H 10/14/16 16:45 INR 1.26 (0.87-1.13) H 10/14/16 16:45 VBG pH 7.386 (7.320-7.420) 10/14/16 16:45 Sodium 136 mmol/L (137-145) L 10/16/16 06:15 Potassium 3.8 mmol/L (3.6-5.0) 10/16/16 06:15 Chloride 97.0 mmol/L (98-107) L 10/16/16 06:15 Carbon Dioxide 23 mmol/L (22-30) 10/16/16 06:15 Anion Gap 20 mmol/L 10/16/16 06:15 BUN 12 mg/dL (9-20) 10/16/16 06:15 Creatinine 0.8 mg/dL (0.8-1.5) 10/16/16 06:15 Estimated GFR > 60 ml/min 10/16/16 06:15 BUN/Creatinine Ratio 15.00 % 10/16/16 06:15 Glucose 117 mg/dL (75-100) H 10/16/16 06:15 POC Glucose 141 (70-105) H 10/17/16 12:31 Hemoglobin A1c 8.6 % (4-6) H 10/14/16 20:40 Lactic Acid 1.1 mmol/L (0.7-2.0) 10/14/16 20:40 Calcium 8.2 mg/dL (8.4-10.2) L 10/16/16 06:15 Total Bilirubin 0.8 mg/dL (0.1-1.2) 10/14/16 16:45 AST 17 units/L (5-40) 10/14/16 16:45 ALT 13 units/L (7-56) 10/14/16 16:45 Alkaline Phosphatase 90 units/L (35-129) 10/14/16 16:45 Total Protein 8.1 g/dL (6.3-8.2) 10/14/16 16:45 Albumin 3.4 g/dL (3.9-5) L 10/14/16 16:45 Albumin/Globulin Ratio 0.7 % 10/14/16 16:45 Urine Color Yellow (Yellow) 10/14/16 21:00 Urine Turbidity Clear (Clear) 10/14/16 21:00 Urine pH 5.0 (5.0-7.0) 10/14/16 21:00 Ur Specific [place] 1.010 (1.003-1.030) 10/14/16 21:00 Urine Protein <15 mg/dl mg/dL (Negative) 10/14/16 21:00 Urine Glucose (UA) >=500 mg/dL (Negative) 10/14/16 21:00 Urine Ketones 20 mg/dL (Negative) 10/14/16 21:00 Urine Blood Neg (Negative) 10/14/16 21:00 Urine Nitrite Neg (Negative) 10/14/16 21:00 Urine Bilirubin Neg (Negative) 10/14/16 21:00 Urine Urobilinogen < 2.0 mg/dL (<2.0) 10/14/16 21:00 Ur Leukocyte Esterase Neg (Negative) 10/14/16 21:00 Urine WBC (Auto) < 1.0 /HPF (0.0-6.0) 10/14/16 21:00 Urine RBC (Auto) < 1.0 /HPF (0.0-6.0) 10/14/16 21:00 - Imaging and Cardiology Imaging and Cardiology: MRI of the left foot showed soft tissue infection with gas forming organism and possible early osteomyelitis.
--- NOTE | 2016-10-17 16:50 | Consultation ---
History of Present Illness - Reason for Consult Consult date: 10/17/16 Requesting physician: HILL ROMAN - History of Present Illness The patient is a 56-year-old male who presented to the emergency department with complaints of nausea and vomiting and drainage from his left foot. He had a history of a left second toe amputation in a diabetic foot ulcer that was not healing. If I was in the foot demonstrated purulent drainage from the foot and an x-ray of the foot demonstrated gas gangrene. We were consulted for management of his wounds. Past History Past Medical History: diabetes, hyperlipidemia, other (asthma) Past Surgical History: Other (amputation of left second toe and left shoulder surgery) Social history: no significant social history Family history: diabetes Medications and Allergies Allergies Allergy/AdvReac Type Severity Reaction Status Date / Time No Known Allergies Allergy Unverified 10/14/16 16:04 Home Medications Medication Instructions Recorded Confirmed Last Taken Type Glimepiride [Amaryl] 1 mg PO BID 10/14/16 10/14/16 Unknown History Lovastatin [Altoprev] 40 mg PO QHS 10/14/16 10/14/16 Unknown History metFORMIN [Glucophage] 500 mg PO BID 10/14/16 10/14/16 Unknown History Active Meds: Active Medications Acetaminophen (Tylenol) 650 mg PO Q4H PRN PRN Reason: Pain MILD(1-3)/Fever >100.5/[place] Last Admin: 10/17/16 06:21 Dose: 650 mg Bisacodyl (Dulcolax) 10 mg [place] QDAY PRN PRN Reason: Constipation unrelieved by MOM Dextrose (D50w (25gm)) 50 ml IV PRN PRN PRN Reason: Hypoglycemia Glimepiride (Amaryl) 2 mg PO DAILY [facility] Last Admin: 10/17/16 09:16 Dose: 2 mg Heparin Sodium (Porcine) (Heparin) 5,000 unit SUB-Q Q8HR LISA Last Admin: 10/17/16 14:30 Dose: 5,000 unit Sodium Chloride (Nacl 0.9% 1000 Ml) 1,000 mls @ 75 mls/hr IV DIRECT LISA Last Admin: 10/17/16 04:40 Dose: 75 mls/hr Piperacillin Sod/Tazobactam Sod (Zosyn/Ns 4.5gm/100ml) 4.5 gm in 100 mls @ 200 mls/hr IV Q8H [facility] PRN Reason: Protocol Last Admin: 10/17/16 13:15 Dose: 200 mls/hr Clindamycin HCl 900 mg/ (Dextrose) 56 mls @ 112 mls/hr IV Q8HR [facility] Last Admin: 10/17/16 14:31 Dose: 112 mls/hr Insulin Aspart (Novolog) 0 units SUB-Q ACHS [facility] PRN Reason: Protocol Last Admin: 10/17/16 12:42 Dose: Not Given Magnesium Hydroxide (Milk Of Magnesia) 30 ml PO Q4H PRN PRN Reason: Constipation Metformin HCl (Glucophage) 850 mg PO BIDDIAB [facility] Last Admin: 10/17/16 09:16 Dose: 850 mg Morphine Sulfate (Morphine) 2 mg IV Q4H PRN PRN Reason: Pain, Moderate (4-6) Last Admin: 10/17/16 13:16 Dose: 2 mg Ondansetron HCl (Zofran) 4 mg IV Q8H PRN PRN Reason: N/V unrelieved by Reglan Oxycodone/Acetaminophen (Percocet 5/325) 1 tab PO Q6H PRN PRN Reason: Pain, Moderate (4-6) Last Admin: 10/17/16 16:13 Dose: 1 tab Simvastatin (Zocor) 20 mg PO QHS [facility] Last Admin: 10/16/16 22:19 Dose: 20 mg Review of Systems All systems: negative Exam - Constitutional Vitals: Temp Pulse Resp BP Pulse Ox 99.9 F H 97 H 20 155/90 100 10/17/16 16:45 10/17/16 16:45 10/17/16 16:45 10/17/16 16:45 10/17/16 08:18 General appearance: Present: no acute distress - Neck Neck: Present: supple - Respiratory Respiratory effort: normal Respiratory: bilateral: CTA - Cardiovascular Rhythm: regular - Extremities Extremities: pulses intact, abnormal (mal perforans ulcer of the left foot with purulent drainage from the dorsum of the foot with fluctuance and necrotic tissue.) - Abdominal General gastrointestinal: Present: soft, non-tender, non-distended Male genitourinary: Present: deferred - Rectal Rectal Exam: deferred - Musculoskeletal Musculoskeletal: strength equal bilaterally Results - Labs CBC & Chem 7: 10/17/16 04:51 10/16/16 06:15 Labs: Abnormal lab results 10/16/16 10/17/16 10/17/16 Range/Units 17:16 04:51 12:31 WBC 11.2 H (4.5-11.0) K/mm3 Hgb 11.5 L (11.8-15.2) gm/dl RDW 13.0 L (13.2-15.2) % Lymph % (Auto) 8.1 L (13.4-35.0) % [place] % (Auto) 9.8 H (0.0-7.3) % Lymph # 0.9 L (1.2-5.4) K/mm3 [place] # 1.1 H (0.0-0.8) K/mm3 Seg Neutrophils % 80.7 H (40.0-70.0) % Seg Neutrophils # 9.0 H (1.8-7.7) K/mm3 POC Glucose 106 H 141 H (70-105) 10/17/16 Range/Units 16:21 WBC (4.5-11.0) K/mm3 Hgb (11.8-15.2) gm/dl RDW (13.2-15.2) % Lymph % (Auto) (13.4-35.0) % [place] % (Auto) (0.0-7.3) % Lymph # (1.2-5.4) K/mm3 [place] # (0.0-0.8) K/mm3 Seg Neutrophils % (40.0-70.0) % Seg Neutrophils # (1.8-7.7) K/mm3 POC Glucose 116 H (70-105) Assessment and Plan 56-year-old male with a history of diabetes and 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 Plan for incision and drainage of the wound in the operating room tomorrow. At that time I will evaluate the tissue indeterminate if the foot is salvageable. I will explain this plan to the patient and his express understanding and agree with the plan.
--- NOTE | 2016-10-17 19:22 | Consultation ---
History of Present Illness - Reason for Consult Consult date: 10/17/16 sepsis/left foot infection Requesting physician: KAYY COCHRAN - History of Present Illness 56-year-old -[place]in[place] male with history of type 2 diabetes for the past 10 years was seen in the emergency room with complaints of left foot ulceration for the past 2-3 weeks and associated with intermittent pain. He says he started having chills and fever after coming to the emergency department. The present symptoms started after he tried to scrape the callus over left foot. And this led to progressively worsening sore in the area. X-ray of the left foot showed gas-formation with soft tissue swelling. He is now admitted for cellulitis and diabetic foot infection. He was noted to have of temperature of 99.5 with moderate leukocytosis. We will treat the patient for possible sepsis. Cultures were drawn. Infectious disease consulted because of sepsis. I saw patient at bedside this am. He collaborated above history. Past History Past Medical History: diabetes, hyperlipidemia, other (asthma) Past Surgical History: Other (amputation of left second toe and left shoulder surgery) Social history: no significant social history Family history: diabetes PE VS - TMAX 103. Chest - good air entry CVS - s1s2 abd - bs+ extr - left foot swollen, skin necrotic and draining purulent material. LABS Reviewed. See lab section. ASSESSMENT 1. Sepsis 2. Left foot abscess/gangrene. 3. dm2 RECOMMENDATION 1. Surgical I and D with debridement. 2. d/c clindamycin and add vancomycin 3. ESR / CRP 4. Agree with wound culture and blood culture. Deep tissue should also be sent for culture. 5. wound care 6. Patient will need at least 2weeks of iv abx. Past History Past Medical History: diabetes, hyperlipidemia, other (asthma) Past Surgical History: Other (amputation of left second toe and left shoulder surgery) Social history: no significant social history Family history: diabetes Medications and Allergies Allergies Allergy/AdvReac Type Severity Reaction Status Date / Time No Known Allergies Allergy Unverified 10/14/16 16:04 Home Medications Medication Instructions Recorded Confirmed Last Taken Type Glimepiride [Amaryl] 1 mg PO BID 10/14/16 10/14/16 Unknown History Lovastatin [Altoprev] 40 mg PO QHS 10/14/16 10/14/16 Unknown History metFORMIN [Glucophage] 500 mg PO BID 10/14/16 10/14/16 Unknown History Active Meds: Active Medications Acetaminophen (Tylenol) 650 mg PO Q4H PRN PRN Reason: Pain MILD(1-3)/Fever >100.5/[place] Last Admin: 10/17/16 06:21 Dose: 650 mg Bisacodyl (Dulcolax) 10 mg [place] QDAY PRN PRN Reason: Constipation unrelieved by MOM Dextrose (D50w (25gm)) 50 ml IV PRN PRN PRN Reason: Hypoglycemia Glimepiride (Amaryl) 2 mg PO DAILY [facility] Last Admin: 10/17/16 09:16 Dose: 2 mg Heparin Sodium (Porcine) (Heparin) 5,000 unit SUB-Q Q8HR COUNT [facility]CLUDES THE [facility] Last Admin: 10/17/16 14:30 Dose: 5,000 unit Sodium Chloride (Nacl 0.9% 1000 Ml) 1,000 mls @ 75 mls/hr IV DIRECT COUNT INCLUDES THE [facility] Last Admin: 10/17/16 04:40 Dose: 75 mls/hr Piperacillin Sod/Tazobactam Sod (Zosyn/Ns 4.5gm/100ml) 4.5 gm in 100 mls @ 200 mls/hr IV Q8H [facility]ISA PRN Reason: Protocol Last Admin: 10/17/16 13:15 Dose: 200 mls/hr Vancomycin HCl (Vancomycin/Ns 1 Gm/250 Ml) 250 mls @ 167 mls/hr IV PKCONSULT LISA PRN Reason: Protocol Stop: 10/23/16 23:59 Insulin Aspart (Novolog) 0 units SUB-Q ACHS [facility]ISA PRN Reason: Protocol Last Admin: 10/17/16 17:43 Dose: Not Given Magnesium Hydroxide (Milk Of Magnesia) 30 ml PO Q4H PRN PRN Reason: Constipation Metformin HCl (Glucophage) 850 mg PO BIDDIAB COUNT [facility]CLUDES THE [facility] Last Admin: 10/17/16 17:46 Dose: 850 mg Morphine Sulfate (Morphine) 2 mg IV Q4H PRN PRN Reason: Pain, Moderate (4-6) Last Admin: 10/17/16 13:16 Dose: 2 mg Ondansetron HCl (Zofran) 4 mg IV Q8H PRN PRN Reason: N/V unrelieved by Reglan Oxycodone/Acetaminophen (Percocet 5/325) 1 tab PO Q6H PRN PRN Reason: Pain, Moderate (4-6) Last Admin: 10/17/16 16:13 Dose: 1 tab Prochlorperazine Maleate (Compazine) 10 mg PO Q6H PRN PRN Reason: Nausea And Vomiting Simvastatin (Zocor) 20 mg PO QHS [facility]ISA Last Admin: 10/16/16 22:19 Dose: 20 mg Physical Examination - Constitutional Vitals: Vital Signs Temp Pulse Resp BP Pulse Ox 99.9 F H 97 H 19 155/90 100 10/17/16 16:45 10/17/16 16:45 10/17/16 17:13 10/17/16 16:45 10/17/16 08:18 Temperature -Last 24 Hours Temperature 99.9 F Temperature 98.5 F Temperature 98.6 F Temperature 97.7 F Temperature 98.4 F Temperature 99.9 F Results - Labs CBC & Chem 7: 10/17/16 04:51 10/16/16 06:15 Labs: Abnormal lab results 10/17/16 10/17/16 10/17/16 Range/Units 04:51 12:31 16:21 WBC 11.2 H (4.5-11.0) K/mm3 Hgb 11.5 L (11.8-15.2) gm/dl RDW 13.0 L (13.2-15.2) % Lymph % (Auto) 8.1 L (13.4-35.0) % [place] % (Auto) 9.8 H (0.0-7.3) % Lymph # 0.9 L (1.2-5.4) K/mm3 [place] # 1.1 H (0.0-0.8) K/mm3 Seg Neutrophils % 80.7 H (40.0-70.0) % Seg Neutrophils # 9.0 H (1.8-7.7) K/mm3 POC Glucose 141 H 116 H (70-105)
[2016-10-17] MEDS ORDERED: VANCOMYCIN/NS 1 GM/250 ML 250 ML IV SCH (20:00)
[2016-10-17] MEDS: COMPAZINE PO PRN (20:46)
[2016-10-17] MEDS: VANCOMYCIN VIAL 1,500 MG in NACL 0.9% 500 ML 500 ML IV SCH (20:49)
[2016-10-17] MEDS: ZOCOR PO SCH (21:41)
[2016-10-18] MEDS: ZOSYN/NS 4.5GM/100ML 4.5 GM/100 ML VIAL IV SCH ×3 (04:38→21:00)
[2016-10-18 05:21] LABS: Anion Gap 15 mmol/L; BUN/Creatinine Ratio 8.75; Blood Urea Nitrogen 7 mg/dL (9-20); Calcium 8.4 mg/dL (8.4-10.2); Carbon Dioxide 24 mmol/L (22-30); Chloride 97.9 mmol/L (98-107); Glucose 96 mg/dL (75-100); Potassium 3.7 mmol/L (3.6-5.0); Sodium 133 mmol/L (137-145)
[2016-10-18] MEDS: PERCOCET 5/325 PO PRN ×2 (07:01→19:03)
[2016-10-18] MEDS: HEPARIN SUB-Q SCH ×3 (07:02→21:50)
[2016-10-18] MEDS: NOVOLOG SUB-Q SCH ×4 (07:37→22:02)
--- NOTE | 2016-10-18 07:45 | Vascular Lab Report ---
LOWER EXTREMITY ARTERIAL PHYSIOLOGIC STUDY: REASON FOR EXAM: Peripheral arterial disease. COMMENTS ON THE RIGHT: Ankle brachial index is 1.14. This value is normal. Toe brachial index is 1.26. This value is normal. Wound healing is likely. Pulse volume recording at the level of the ankle is normal. Exercise testing was not done. COMMENTS ON THE LEFT: Ankle brachial index is 1.15. This value is normal. Toe brachial index is 0.95. This value is normal. Wound healing is likely. Pulse volume recording at the level of the ankle is normal. Exercise testing was not done. IMPRESSION: RIGHT: No hemodynamically significant arterial disease. LEFT:No hemodynamically significant arterial disease.
--- NOTE | 2016-10-18 07:46 | Vascular Lab Report ---
LOWER EXTREMITY ARTERIAL DUPLEX: REASON FOR EXAM: Left foot ulcer. COMMENTS ON THE RIGHT: Triphasic waveforms are seen proximally. Triphasic waveforms are seen distally. No significant velocity gradients are identified. No focal significant plaque is identified. Findings are consistent with normal perfusion. Findings are consistent with the ability to heal distal wounds. COMMENTS ON THE LEFT: Triphasic waveforms are seen proximally. Monophasic waveforms are seen distally most likely due to decreased peripheral resistance and increased diastolic flow because of the ulcer. No significant velocity gradients are identified. No focal significant plaque is identified. Findings are consistent with normal perfusion. Findings are consistent with the ability to heal distal wounds. IMPRESSION: RIGHT: Essentially normal arterial flow. LEFT:Essentially normal arterial flow.
[2016-10-18] MEDS: VANCOMYCIN VIAL 1,500 MG in NACL 0.9% 500 ML 500 ML IV SCH ×2 (08:06→16:20)
[2016-10-18] MEDS: GLUCOPHAGE PO SCH ×2 (08:33→18:52)
[2016-10-18] MEDS: AMARYL PO SCH (10:36)
[2016-10-18] MEDS: COMPAZINE PO PRN (12:21)
--- NOTE | 2016-10-18 14:04 | Anesthesia Day of Surgery ---
Anesthesia Day of Surgery - Day of Surgery Patient Examined: Yes Patient H&P Reviewed: Yes Patient is NPO: Yes
--- NOTE | 2016-10-18 14:04 | Anesthesia Consultation ---
Anesthesia Consult and Med Hx Date of service: 10/18/16 - Airway Anesthetic Teeth Evaluation: Good ROM Head & Neck: Adequate Mental/Hyoid Distance: Adequate Mallampati Class: Class I Intubation Access Assessment: Good - Pulmonary Exam CTA: Yes - Cardiac Exam Cardiac Exam: RRR - Pre-Operative Health Status ASA Pre-Surgery Classification: ASA3 Proposed Anesthetic Plan: General - Pulmonary Hx Asthma: Yes - Central Nervous System Hx Psychiatric Problems: No - Endocrine Hx Non-Insulin Dependent Diabetes: Yes - Other Systems Hx Cancer: No - Additional Comments Anesthesia Medical History Comments: hyperlipidemia
[2016-10-18] MEDS ORDERED: DILAUDID IV PRN (14:05)
[2016-10-18] MEDS: NACL 0.9% 1000 ML 1,000 ML IV SCH ×2 (14:23→14:25)
[2016-10-18] MEDS ORDERED: DIPRIVAN 10 MG/ML IV ONE (14:34)
[2016-10-18] MEDS ORDERED: DILAUDID ONE (14:35)
[2016-10-18] MEDS ORDERED: VERSED IV NR (15:00)
[2016-10-18] MEDS ORDERED: PEPCID PO NR (15:00)
[2016-10-18] MEDS ORDERED: ZOFRAN ONE (15:19)
[2016-10-18] MEDS ORDERED: DECADRON ONE (15:19)
[2016-10-18] MEDS ORDERED: XYLOCAINE MPF 2% ONE (15:19)
[2016-10-18] MEDS ORDERED: NACL 0.9% IR ONE ×2 (15:31→16:05)
--- NOTE | 2016-10-18 15:53 | Progress Note ---
Assessment and Plan Assessment and plan: Diabetic foot infection. Cellulitis and abscess. On Zosyn and Vancomycin. For Incision and drainage today. Diabetes mellitus type 2. Fingerstick glucose qac and hs. Continue Glucophage, Amaryl Sepsis due to diabetic left foot infection. On Zosyn and Vancomycin iv. ID Physician following. Hyponatremia. DVT prophylaxis. Heparin subcut Full code status History Interval history: Mild pain left foot, no fever, For surgery today Hospitalist Physical - Physical exam Narrative exam: Gen: not in acute distress HEENT: normocephalic,atraumatic Neck :supple, no JVD Lungs: clear to auscultation bilaterally, no crackles no wheezes Heart: S1 and S2 regular, no murmurs no gallops, Abdomen: soft nontender, nondistended, normal bowel sounds Extremities:left foot infection, covered with dressing, no clubbing or cyanosis Neuro: Awake alert oriented x 3, no focal signs Psych: Normal mood - Constitutional Vitals: Temp Pulse Resp BP Pulse Ox 98.2 F 79 16 158/87 98 10/18/16 11:12 10/18/16 11:12 10/18/16 11:12 10/18/16 11:12 10/18/16 11:12 General appearance: Present: no acute distress Results - Labs CBC & Chem 7: 10/17/16 04:51 10/18/16 04:27 Labs: Laboratory Last Values WBC 11.2 K/mm3 (4.5-11.0) H 10/17/16 04:51 RBC 4.11 M/mm3 (3.65-5.03) 10/17/16 04:51 Hgb 11.5 gm/dl (11.8-15.2) L 10/17/16 04:51 Hct 36.4 % (35.5-45.6) 10/17/16 04:51 MCV 89 fl (84-94) 10/17/16 04:51 MCH 28 pg (28-32) 10/17/16 04:51 MCHC 32 % (32-34) 10/17/16 04:51 RDW 13.0 % (13.2-15.2) L 10/17/16 04:51 Plt Count 246 K/mm3 (140-440) 10/17/16 04:51 Lymph % (Auto) 8.1 % (13.4-35.0) L 10/17/16 04:51 [place] % (Auto) 9.8 % (0.0-7.3) H 10/17/16 04:51 Eos % (Auto) 1.0 % (0.0-4.3) 10/17/16 04:51 Baso % (Auto) 0.4 % (0.0-1.8) 10/17/16 04:51 Lymph # 0.9 K/mm3 (1.2-5.4) L 10/17/16 04:51 [place] # 1.1 K/mm3 (0.0-0.8) H 10/17/16 04:51 Eos # 0.1 K/mm3 (0.0-0.4) 10/17/16 04:51 Baso # 0.0 K/mm3 (0.0-0.1) 10/17/16 04:51 Seg Neutrophils % 80.7 % (40.0-70.0) H 10/17/16 04:51 Seg Neutrophils # 9.0 K/mm3 (1.8-7.7) H 10/17/16 04:51 ESR 87 mm/Hr (0-20) 10/17/16 19:54 PT 15.7 Sec. (12.2-14.9) H 10/14/16 16:45 INR 1.26 (0.87-1.13) H 10/14/16 16:45 VBG pH 7.386 (7.320-7.420) 10/14/16 16:45 Sodium 133 mmol/L (137-145) L 10/18/16 04:27 Potassium 3.7 mmol/L (3.6-5.0) 10/18/16 04:27 Chloride 97.9 mmol/L (98-107) L 10/18/16 04:27 Carbon Dioxide 24 mmol/L (22-30) 10/18/16 04:27 Anion Gap 15 mmol/L 10/18/16 04:27 BUN 7 mg/dL (9-20) L 10/18/16 04:27 Creatinine 0.8 mg/dL (0.8-1.5) 10/18/16 04:27 Estimated GFR > 60 ml/min 10/18/16 04:27 BUN/Creatinine Ratio 8.75 % 10/18/16 04:27 Glucose 96 mg/dL (75-100) 10/18/16 04:27 POC Glucose 72 (70-105) 10/18/16 11:46 Hemoglobin A1c 8.6 % (4-6) H 10/14/16 20:40 Lactic Acid 1.1 mmol/L (0.7-2.0) 10/14/16 20:40 Calcium 8.4 mg/dL (8.4-10.2) 10/18/16 04:27 Total Bilirubin 0.8 mg/dL (0.1-1.2) 10/14/16 16:45 AST 17 units/L (5-40) 10/14/16 16:45 ALT 13 units/L (7-56) 10/14/16 16:45 Alkaline Phosphatase 90 units/L (35-129) 10/14/16 16:45 C-Reactive Protein 16.30 mg/dL (0.00-1.30) H 10/17/16 19:54 Total Protein 8.1 g/dL (6.3-8.2) 10/14/16 16:45 Albumin 3.4 g/dL (3.9-5) L 10/14/16 16:45 Albumin/Globulin Ratio 0.7 % 10/14/16 16:45 Urine Color Yellow (Yellow) 10/14/16 21:00 Urine Turbidity Clear (Clear) 10/14/16 21:00 Urine pH 5.0 (5.0-7.0) 10/14/16 21:00 Ur Specific [place] 1.010 (1.003-1.030) 10/14/16 21:00 Urine Protein <15 mg/dl mg/dL (Negative) 10/14/16 21:00 Urine Glucose (UA) >=500 mg/dL (Negative) 10/14/16 21:00 Urine Ketones 20 mg/dL (Negative) 10/14/16 21:00 Urine Blood Neg (Negative) 10/14/16 21:00 Urine Nitrite Neg (Negative) 10/14/16 21:00 Urine Bilirubin Neg (Negative) 10/14/16 21:00 Urine Urobilinogen < 2.0 mg/dL (<2.0) 10/14/16 21:00 Ur Leukocyte Esterase Neg (Negative) 10/14/16 21:00 Urine WBC (Auto) < 1.0 /HPF (0.0-6.0) 10/14/16 21:00 Urine RBC (Auto) < 1.0 /HPF (0.0-6.0) 10/14/16 21:00
--- NOTE | 2016-10-18 17:01 | Post Anesthesia Evaluation ---
- Post Anesthesia Evaluation Patient Participated: Yes Airway Patent: Yes Stable Respiratory Function: Yes Temp > 96.8F: Yes Pain Manageable: Yes Adequeate Hydration: Yes Anesthesia Complications: No Block Receding Appropriately: Not Applicable
[2016-10-18] MEDS ORDERED: D50W (25GM) IV ONE ×3 (17:08→18:00)
--- NOTE | 2016-10-18 17:13 | Operative Report ---
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 Incision and Drainage of Left Foot Abscess 2. Excisional Debridement Skin, Muscle, and Soft Tissue of Left Foot Diabetic Ulcer Surgeon: Segundo Ward M.D. Negative Stripper: None Anesthesia: Gen. endotracheal anesthesia EBL: Minimal Counts: Correct Complications: None Condition: Stable Findings: The ulceration was debrided to healthy viable tissue with excellent bleeding edges. Specimen: Culture swabs sent for sensitivity. Skin, muscle, soft tissue of left was sent to pathology. Indication: The patient is a 56-year-old male with a history of diabetes and diabetic neuropathy who presented with an ulceration on the plantar surface of his left foot with drainage from the dorsal portion of the foot. He underwent x-ray that demonstrated gas within the foot. We were consulted for management. Although the patient had palpable pulses is felt that this required urgent intervention was offered debridement of the foot. He was given the risks, benefits, and alternative procedures and consented to procedure. Description of Procedure: The patient was brought to the operating room and laid in supine position. After general endotracheal anesthesia was achieved with left foot was prepped and draped in fashion. I initially used a Yahaira clamp to connect the patient's dorsal draining abscess to the ulceration on the plantar surface of foot. I then used a 10 blade to excise the necrotic skin overlying the fluid collection and encountered a significant amount of purulent drainage. Cultures were taken and sent to microbiology for sensitivity. I then used curved Mayos to sharply debride necrotic tissue within the wound. My initial plan was to place a Jose Raul through this tract however as continued to debride the foot I realized that the patient had a second ulcer on the plantar surface of his foot that was connected to an additional fluid collection within the mid foot. At this point I decided to debride all necrotic tissue by creating a wedge between his first and third toe, as the patient had had a previous fourth toe amputation. I debrided all visible necrotic tissue within the wound and then used the pulse lavage to further debride tissue. Of note the head of the fourth metatarsal was not visualized. Hemostasis within the wound was achieved with a combination of direct pressure and cautery. Once hemostasis was achieved the wound was dressed with Betadine soaked gauze, fluffs, ABDs pad, Kerlix, and a 4 inch Rahul bandage. The patient tolerated the procedure well. All sponge, needle , and estimate counts were correct. The patient was taken to the recovery area in stable condition.
--- NOTE | 2016-10-18 19:30 | Progress Note ---
Subjective Date of service: 10/18/16 Principal diagnosis: left foot abscess/necrosis Interval history: No new complaints today. PE VS - afebrile.. Chest - good air entry CVS - s1s2 abd - bs+ extr - left foot swollen, skin necrotic and draining purulent material. LABS wound culture - peptostreptococcus. Reviewed. See lab section. ASSESSMENT 1. Sepsis 2. Left foot abscess/gangrene. 3. dm2 RECOMMENDATION 1. Surgical I and D with debridement. 2. Continue vancomycin. 6. Arrange home wound care and iv vancomycin for 3weeks.. Objective - Constitutional Vitals: Vital Signs Temp Pulse Resp BP Pulse Ox 98.2 F 81 20 165/95 98 10/18/16 18:05 10/18/16 18:05 10/18/16 19:03 10/18/16 18:05 10/18/16 18:05 Temperature -Last 24 Hours Temperature 98.2 F Temperature 98 F Temperature 99.3 F Temperature 99.3 F Temperature 98.2 F Temperature 97.8 F Temperature 97.0 F Temperature 97.0 F Temperature 97.3 F - Labs CBC & Chem 7: 10/17/16 04:51 10/18/16 04:27 Labs: Abnormal lab results 10/17/16 10/17/16 10/18/16 Range/Units 19:54 21:15 04:27 Sodium 133 L (137-145) mmol/L Chloride 97.9 L (98-107) mmol/L BUN 7 L (9-20) mg/dL POC Glucose 166 H (70-105) C-Reactive Protein 16.30 H (0.00-1.30) mg/dL 10/18/16 10/18/16 10/18/16 Range/Units 16:28 17:28 18:11 Sodium (137-145) mmol/L Chloride (98-107) mmol/L BUN (9-20) mg/dL POC Glucose 59 L 117 H 110 H (70-105) C-Reactive Protein (0.00-1.30) mg/dL
[2016-10-18] MEDS: ZOCOR PO SCH (21:49)
[2016-10-19] MEDS: VANCOMYCIN VIAL 1,500 MG in NACL 0.9% 500 ML 500 ML IV SCH ×3 (00:47→18:13)
[2016-10-19] MEDS: ZOSYN/NS 4.5GM/100ML 4.5 GM/100 ML VIAL IV SCH ×3 (04:54→22:15)
[2016-10-19] MEDS: NACL 0.9% 1000 ML 1,000 ML IV SCH ×2 (04:55→22:14)
[2016-10-19] MEDS: MORPHINE IV PRN (05:06)
[2016-10-19] MEDS: HEPARIN SUB-Q SCH ×3 (05:07→22:20)
[2016-10-19] MEDS: NOVOLOG SUB-Q SCH ×5 (09:01→22:45)
[2016-10-19] MEDS: GLUCOPHAGE PO SCH ×2 (09:01→17:48)
[2016-10-19] MEDS: AMARYL PO SCH (09:02)
[2016-10-19] MEDS: PERCOCET 5/325 PO PRN ×2 (12:25→18:46)
[2016-10-19] MEDS: TYLENOL PO PRN (14:28)
--- NOTE | 2016-10-19 15:37 | Progress Note ---
Assessment and Plan Pt s/p drainage of left foot abscess. ABX per ID. Pt was eval'd by ET nurse and wound vac placed. D/c planning for home vac. - Patient Problems (1) Abscess of left foot Current Visit: Yes Status: Acute Subjective Date of service: 10/19/16 Principal diagnosis: left foot abscess/necrosis Interval history: Pt awake and alert. He feels much better post-op. Objective - Constitutional Vitals: Vital Signs - 12hr 10/19/16 10/19/16 05:00 09:40 Temperature 96.9 F L 97.8 F Pulse Rate [ 75 Apical] Pulse Rate [ 75 Left Radial] Respiratory 75 H 18 Rate Blood Pressure 174/98 184/102 [Left Arm] O2 Sat by Pulse 97 100 Oximetry General appearance: Present: no acute distress - EENT Eyes: EOM intact ENT: hearing intact - Respiratory Respiratory effort: normal Extremities: no ischemia, normal temperature, abnormal (keeley wrap bandages CDI) - Neurologic Neurologic: no focal deficits - Psychiatric Psychiatric: appropriate mood/affect, intact judgment & insight, cooperative - Labs CBC & Chem 7: 10/17/16 04:51 10/18/16 04:27 Labs: Abnormal lab results 10/18/16 10/18/16 10/18/16 Range/Units 16:28 17:28 18:11 POC Glucose 59 L 117 H 110 H (70-105) 10/18/16 10/19/16 10/19/16 Range/Units 21:48 05:58 12:29 POC Glucose 289 H 281 H 239 H (70-105)
--- NOTE | 2016-10-19 17:21 | Progress Note ---
Assessment and Plan Assessment and plan: Diabetic left foot infection. Cellulitis and abscess. On Zosyn and Vancomycin. had surgery yesteerday - Incision, drainage and debridement. For home wound vac. case management working on it. Diabetes mellitus type 2. Fingerstick glucose qac and hs. Continue Glucophage, Amaryl Sepsis due to diabetic left foot infection. Continue Zosyn and Vancomycin iv. ID Physician following. Hyponatremia. DVT prophylaxis. Heparin subcut Full code status History Interval history: Mild pain left foot, no fever, Had surgery yesterday Hospitalist Physical - Physical exam Narrative exam: Gen: not in acute distress HEENT: normocephalic,atraumatic Neck :supple, no JVD Lungs: clear to auscultation bilaterally, no crackles no wheezes Heart: S1 and S2 regular, no murmurs no gallops, Abdomen: soft nontender, nondistended, normal bowel sounds Extremities:left foot infection, covered with dressing, no clubbing or cyanosis Neuro: Awake alert oriented x 3, no focal signs Psych: Normal mood - Constitutional Vitals: Temp Pulse Resp BP Pulse Ox 97.8 F 75 18 184/102 100 10/19/16 09:40 10/19/16 09:40 10/19/16 09:40 10/19/16 09:40 10/19/16 09:40 General appearance: Present: no acute distress Results - Labs CBC & Chem 7: 10/17/16 04:51 10/18/16 04:27 Labs: Laboratory Last Values WBC 11.2 K/mm3 (4.5-11.0) H 10/17/16 04:51 RBC 4.11 M/mm3 (3.65-5.03) 10/17/16 04:51 Hgb 11.5 gm/dl (11.8-15.2) L 10/17/16 04:51 Hct 36.4 % (35.5-45.6) 10/17/16 04:51 MCV 89 fl (84-94) 10/17/16 04:51 MCH 28 pg (28-32) 10/17/16 04:51 MCHC 32 % (32-34) 10/17/16 04:51 RDW 13.0 % (13.2-15.2) L 10/17/16 04:51 Plt Count 246 K/mm3 (140-440) 10/17/16 04:51 Lymph % (Auto) 8.1 % (13.4-35.0) L 10/17/16 04:51 [place] % (Auto) 9.8 % (0.0-7.3) H 10/17/16 04:51 Eos % (Auto) 1.0 % (0.0-4.3) 10/17/16 04:51 Baso % (Auto) 0.4 % (0.0-1.8) 10/17/16 04:51 Lymph # 0.9 K/mm3 (1.2-5.4) L 10/17/16 04:51 [place] # 1.1 K/mm3 (0.0-0.8) H 10/17/16 04:51 Eos # 0.1 K/mm3 (0.0-0.4) 10/17/16 04:51 Baso # 0.0 K/mm3 (0.0-0.1) 10/17/16 04:51 Seg Neutrophils % 80.7 % (40.0-70.0) H 10/17/16 04:51 Seg Neutrophils # 9.0 K/mm3 (1.8-7.7) H 10/17/16 04:51 ESR 87 mm/Hr (0-20) 10/17/16 19:54 PT 15.7 Sec. (12.2-14.9) H 10/14/16 16:45 INR 1.26 (0.87-1.13) H 10/14/16 16:45 VBG pH 7.386 (7.320-7.420) 10/14/16 16:45 Sodium 133 mmol/L (137-145) L 10/18/16 04:27 Potassium 3.7 mmol/L (3.6-5.0) 10/18/16 04:27 Chloride 97.9 mmol/L (98-107) L 10/18/16 04:27 Carbon Dioxide 24 mmol/L (22-30) 10/18/16 04:27 Anion Gap 15 mmol/L 10/18/16 04:27 BUN 7 mg/dL (9-20) L 10/18/16 04:27 Creatinine 0.8 mg/dL (0.8-1.5) 10/18/16 04:27 Estimated GFR > 60 ml/min 10/18/16 04:27 BUN/Creatinine Ratio 8.75 % 10/18/16 04:27 Glucose 96 mg/dL (75-100) 10/18/16 04:27 POC Glucose 239 (70-105) H 10/19/16 12:29 Hemoglobin A1c 8.6 % (4-6) H 10/14/16 20:40 Lactic Acid 1.1 mmol/L (0.7-2.0) 10/14/16 20:40 Calcium 8.4 mg/dL (8.4-10.2) 10/18/16 04:27 Total Bilirubin 0.8 mg/dL (0.1-1.2) 10/14/16 16:45 AST 17 units/L (5-40) 10/14/16 16:45 ALT 13 units/L (7-56) 10/14/16 16:45 Alkaline Phosphatase 90 units/L (35-129) 10/14/16 16:45 C-Reactive Protein 16.30 mg/dL (0.00-1.30) H 10/17/16 19:54 Total Protein 8.1 g/dL (6.3-8.2) 10/14/16 16:45 Albumin 3.4 g/dL (3.9-5) L 10/14/16 16:45 Albumin/Globulin Ratio 0.7 % 10/14/16 16:45 Urine Color Yellow (Yellow) 10/14/16 21:00 Urine Turbidity Clear (Clear) 10/14/16 21:00 Urine pH 5.0 (5.0-7.0) 10/14/16 21:00 Ur Specific [place] 1.010 (1.003-1.030) 10/14/16 21:00 Urine Protein <15 mg/dl mg/dL (Negative) 10/14/16 21:00 Urine Glucose (UA) >=500 mg/dL (Negative) 10/14/16 21:00 Urine Ketones 20 mg/dL (Negative) 10/14/16 21:00 Urine Blood Neg (Negative) 10/14/16 21:00 Urine Nitrite Neg (Negative) 10/14/16 21:00 Urine Bilirubin Neg (Negative) 10/14/16 21:00 Urine Urobilinogen < 2.0 mg/dL (<2.0) 10/14/16 21:00 Ur Leukocyte Esterase Neg (Negative) 10/14/16 21:00 Urine WBC (Auto) < 1.0 /HPF (0.0-6.0) 10/14/16 21:00 Urine RBC (Auto) < 1.0 /HPF (0.0-6.0) 10/14/16 21:00
--- NOTE | 2016-10-19 20:32 | Progress Note ---
Subjective Date of service: 10/19/16 Principal diagnosis: left foot abscess/necrosis Interval history: No new complaints today. PE VS - afebrile.. Chest - good air entry CVS - s1s2 abd - bs+ extr - left foot dressed post surgery. LABS wound culture - peptostreptococcus. Reviewed. See lab section. ASSESSMENT 1. Sepsis 2. Left foot abscess/gangrene s/p debridement. 3. dm2 RECOMMENDATION 1. Surgical I and D with debridement. 2. Continue vancomycin. 6. Arrange home wound care and iv vancomycin 1g every 12hourly for 3weeks. OR evaluate for LTAC. Objective - Constitutional Vitals: Vital Signs Temp Pulse Resp BP Pulse Ox 97.9 F 72 18 135/79 100 10/19/16 10:00 10/19/16 19:56 10/19/16 10:00 10/19/16 10:00 10/19/16 10:00 Temperature -Last 24 Hours Temperature 97.9 F Temperature 97.8 F Temperature 96.9 F Temperature 97.0 F - Labs CBC & Chem 7: 10/17/16 04:51 10/18/16 04:27 Labs: Abnormal lab results 10/18/16 10/19/16 10/19/16 Range/Units 21:48 05:58 12:29 POC Glucose 289 H 281 H 239 H (70-105)
[2016-10-19] MEDS: ZOCOR PO SCH (22:15)
[2016-10-20] MEDS: HEPARIN SUB-Q SCH ×3 (06:59→22:00)
[2016-10-20] MEDS: ZOSYN/NS 4.5GM/100ML 4.5 GM/100 ML VIAL IV SCH ×3 (06:59→20:45)
[2016-10-20 07:51] LABS: Anion Gap 16 mmol/L; Blood Urea Nitrogen 9 mg/dL (9-20); Calcium 8.6 mg/dL (8.4-10.2); Carbon Dioxide 26 mmol/L (22-30); Chloride 106.6 mmol/L (98-107); Glucose 145 mg/dL (75-100); Potassium 3.9 mmol/L (3.6-5.0); Sodium 145 mmol/L (137-145)
[2016-10-20 07:52] LABS: Hematocrit 37.3 % (35.5-45.6); Hemoglobin 11.9 gm/dl (11.8-15.2); Mean Corpuscular HGB Conc 32 % (32-34); Mean Corpuscular Hemoglobin 28 pg (28-32); Mean Corpuscular Volume 88 fl (84-94); Platelet Count 321 K/mm3 (140-440); Red Blood Count 4.22 M/mm3 (3.65-5.03); Red Cell Distribution Width 13.4 % (13.2-15.2); White Blood Count 4.8 K/mm3 (4.5-11.0)
[2016-10-20] MEDS: GLUCOPHAGE PO SCH ×2 (08:25→16:24)
[2016-10-20] MEDS: PERCOCET 5/325 PO PRN ×3 (08:29→21:13)
[2016-10-20] MEDS: NOVOLOG SUB-Q SCH ×4 (09:21→22:22)
--- NOTE | 2016-10-20 11:03 | Progress Note ---
Assessment and Plan Assessment and plan: Diabetic left foot infection. Cellulitis and abscess. On Zosyn and Vancomycin. had surgery 10/19/16 - Incision, drainage and debridement. For home wound vac. case management working on it. Diabetes mellitus type 2. Fingerstick glucose qac and hs. Continue Glucophage, Amaryl Sepsis due to diabetic left foot infection. Continue Zosyn and Vancomycin iv. ID Physician following. Hyponatremia. Elevated BP. If persists may start anti-hypertensive. He denies history of hypertension. DVT prophylaxis. Heparin subcut Full code status History Interval history: Mild pain left foot, no fever, Post I and D and debridement left foot. Hospitalist Physical - Physical exam Narrative exam: Gen: not in acute distress HEENT: normocephalic,atraumatic Neck :supple, no JVD Lungs: clear to auscultation bilaterally, no crackles no wheezes Heart: S1 and S2 regular, no murmurs no gallops, Abdomen: soft nontender, nondistended, normal bowel sounds Extremities:left foot infection, covered with dressing, no clubbing or cyanosis Neuro: Awake alert oriented x 3, no focal signs Psych: Normal mood - Constitutional Vitals: Temp Pulse Resp BP Pulse Ox 98.0 F 69 18 170/96 100 10/20/16 08:00 10/20/16 08:00 10/20/16 08:00 10/20/16 08:00 10/20/16 08:00 General appearance: Present: no acute distress Results - Labs CBC & Chem 7: 10/20/16 07:05 10/20/16 07:05 Labs: Laboratory Last Values WBC 4.8 K/mm3 (4.5-11.0) 10/20/16 07:05 RBC 4.22 M/mm3 (3.65-5.03) 10/20/16 07:05 Hgb 11.9 gm/dl (11.8-15.2) 10/20/16 07:05 Hct 37.3 % (35.5-45.6) 10/20/16 07:05 MCV 88 fl (84-94) 10/20/16 07:05 MCH 28 pg (28-32) 10/20/16 07:05 MCHC 32 % (32-34) 10/20/16 07:05 RDW 13.4 % (13.2-15.2) 10/20/16 07:05 Plt Count 321 K/mm3 (140-440) 10/20/16 07:05 Lymph % (Auto) 8.1 % (13.4-35.0) L 10/17/16 04:51 [place] % (Auto) 9.8 % (0.0-7.3) H 10/17/16 04:51 Eos % (Auto) 1.0 % (0.0-4.3) 10/17/16 04:51 Baso % (Auto) 0.4 % (0.0-1.8) 10/17/16 04:51 Lymph # 0.9 K/mm3 (1.2-5.4) L 10/17/16 04:51 [place] # 1.1 K/mm3 (0.0-0.8) H 10/17/16 04:51 Eos # 0.1 K/mm3 (0.0-0.4) 10/17/16 04:51 Baso # 0.0 K/mm3 (0.0-0.1) 10/17/16 04:51 Seg Neutrophils % 80.7 % (40.0-70.0) H 10/17/16 04:51 Seg Neutrophils # 9.0 K/mm3 (1.8-7.7) H 10/17/16 04:51 ESR 87 mm/Hr (0-20) 10/17/16 19:54 PT 15.7 Sec. (12.2-14.9) H 10/14/16 16:45 INR 1.26 (0.87-1.13) H 10/14/16 16:45 VBG pH 7.386 (7.320-7.420) 10/14/16 16:45 Sodium 145 mmol/L (137-145) D 10/20/16 07:05 Potassium 3.9 mmol/L (3.6-5.0) 10/20/16 07:05 Chloride 106.6 mmol/L (98-107) 10/20/16 07:05 Carbon Dioxide 26 mmol/L (22-30) 10/20/16 07:05 Anion Gap 16 mmol/L 10/20/16 07:05 BUN 9 mg/dL (9-20) 10/20/16 07:05 Creatinine 0.9 mg/dL (0.8-1.5) 10/20/16 07:05 Estimated GFR > 60 ml/min 10/20/16 07:05 BUN/Creatinine Ratio 10.00 % 10/20/16 07:05 Glucose 145 mg/dL (75-100) H 10/20/16 07:05 POC Glucose 159 (70-105) H 10/19/16 22:36 Hemoglobin A1c 8.6 % (4-6) H 10/14/16 20:40 Lactic Acid 1.1 mmol/L (0.7-2.0) 10/14/16 20:40 Calcium 8.6 mg/dL (8.4-10.2) 10/20/16 07:05 Total Bilirubin 0.8 mg/dL (0.1-1.2) 10/14/16 16:45 AST 17 units/L (5-40) 10/14/16 16:45 ALT 13 units/L (7-56) 10/14/16 16:45 Alkaline Phosphatase 90 units/L (35-129) 10/14/16 16:45 C-Reactive Protein 16.30 mg/dL (0.00-1.30) H 10/17/16 19:54 Total Protein 8.1 g/dL (6.3-8.2) 10/14/16 16:45 Albumin 3.4 g/dL (3.9-5) L 10/14/16 16:45 Albumin/Globulin Ratio 0.7 % 10/14/16 16:45 Urine Color Yellow (Yellow) 10/14/16 21:00 Urine Turbidity Clear (Clear) 10/14/16 21:00 Urine pH 5.0 (5.0-7.0) 10/14/16 21:00 Ur Specific [place] 1.010 (1.003-1.030) 10/14/16 21:00 Urine Protein <15 mg/dl mg/dL (Negative) 10/14/16 21:00 Urine Glucose (UA) >=500 mg/dL (Negative) 10/14/16 21:00 Urine Ketones 20 mg/dL (Negative) 10/14/16 21:00 Urine Blood Neg (Negative) 10/14/16 21:00 Urine Nitrite Neg (Negative) 10/14/16 21:00 Urine Bilirubin Neg (Negative) 10/14/16 21:00 Urine Urobilinogen < 2.0 mg/dL (<2.0) 10/14/16 21:00 Ur Leukocyte Esterase Neg (Negative) 10/14/16 21:00 Urine WBC (Auto) < 1.0 /HPF (0.0-6.0) 10/14/16 21:00 Urine RBC (Auto) < 1.0 /HPF (0.0-6.0) 10/14/16 21:00 Vancomycin Trough 24.0 ug/mL (5.0-20.0) H 10/20/16 07:05
[2016-10-20] MEDS: AMARYL PO SCH (11:18)
--- NOTE | 2016-10-20 13:49 | XRay Report ---
Single view chest: Compared to 10/14/16. History: Right arm PICC line placement. Findings: Normal cardiomediastinal silhouette. Trachea is midline. No consolidation, pneumothorax or pleural effusion. Tip of right PICC line in upper superior vena cava. Impression: Tip of right PICC line in upper superior vena cava.
--- NOTE | 2016-10-20 14:55 | Progress Note ---
Assessment and Plan Patient is status post an I&D of a left foot abscess. Recommended he avoid left forefoot pressure with ambulation as tolerated to decrease the chance of wound breakdown. Discharge planning in progress for home wound VAC. Antibiotics per the infectious disease service. Okay to discharge from vascular standpoint once all arrangements have been completed and he is cleared medically. Recommended to the patient and family that they contact a pot fireman on their insurance referral list following discharge, as he will likely require additional procedures in the future. He should follow up in our office in approximately 2 weeks. - Patient Problems (1) Abscess of left foot Current Visit: Yes Status: Acute Subjective Date of service: 10/20/16 Principal diagnosis: left foot abscess/necrosis Interval history: Patient is awake and alert without specific complaints at present. Objective - Constitutional Vitals: Vital Signs - 12hr 10/20/16 10/20/16 08:00 11:32 Temperature 98.0 F 98.2 F Pulse Rate [ 69 70 Right Radial] Respiratory 18 18 Rate Blood Pressure 170/96 120/76 [Right Arm] O2 Sat by Pulse 100 100 Oximetry General appearance: Present: no acute distress - EENT Eyes: EOM intact ENT: hearing intact - Neck Neck: supple - Respiratory Respiratory effort: normal (unlabored at rest.) Extremities: normal temperature, abnormal (wound VAC in place.) - Neurologic Neurologic: no focal deficits - Psychiatric Psychiatric: appropriate mood/affect, intact judgment & insight, cooperative - Labs CBC & Chem 7: 10/20/16 07:05 10/20/16 07:05 Labs: Abnormal lab results 10/19/16 10/20/16 10/20/16 Range/Units 22:36 07:05 07:05 Glucose 145 H (75-100) mg/dL POC Glucose 159 H (70-105) Vancomycin Trough 24.0 H (5.0-20.0) ug/mL
[2016-10-20] MEDS: VANCOMYCIN/NS 1 GM/250 ML 1 GM/250 ML BAG IV SCH ×2 (16:24→21:59)
--- NOTE | 2016-10-20 19:08 | Progress Note ---
Subjective Date of service: 10/20/16 Principal diagnosis: left foot abscess/necrosis Interval history: No new complaints today. PE VS - afebrile.. Chest - good air entry CVS - s1s2 abd - bs+ extr - left foot dressed post surgery. LABS wound culture - peptostreptococcus. Reviewed. See lab section. ASSESSMENT 1. Sepsis 2. Left foot abscess/gangrene s/p debridement. 3. dm2 RECOMMENDATION 1. Continue vancomycin. 2. Arrange home wound care and iv vancomycin 1g every 12hourly for 3weeks. OR evaluate for LTAC. Objective - Constitutional Vitals: Vital Signs Temp Pulse Resp BP Pulse Ox 98.3 F 76 20 161/86 99 10/20/16 16:00 10/20/16 16:00 10/20/16 16:00 10/20/16 16:00 10/20/16 16:00 Temperature -Last 24 Hours Temperature 98.3 F Temperature 98.2 F Temperature 98.0 F Temperature 98.2 F - Labs CBC & Chem 7: 10/20/16 07:05 10/20/16 07:05 Labs: Abnormal lab results 10/19/16 10/20/16 10/20/16 Range/Units 22:36 07:05 07:05 Glucose 145 H (75-100) mg/dL POC Glucose 159 H (70-105) Vancomycin Trough 24.0 H (5.0-20.0) ug/mL
[2016-10-20] MEDS: NACL 0.9% 1000 ML 1,000 ML IV SCH (21:15)
[2016-10-20] MEDS: ZOCOR PO SCH (22:00)
[2016-10-21] MEDS: APRESOLINE IV PRN ×2 (00:59→10:27)
[2016-10-21] MEDS: PERCOCET 5/325 PO PRN ×4 (03:55→23:32)
[2016-10-21] MEDS: ZOSYN/NS 4.5GM/100ML 4.5 GM/100 ML VIAL IV SCH ×3 (03:57→20:12)
[2016-10-21] MEDS: HEPARIN SUB-Q SCH ×3 (05:42→22:00)
[2016-10-21] MEDS: VANCOMYCIN/NS 1 GM/250 ML 1 GM/250 ML BAG IV SCH ×3 (05:42→22:00)
[2016-10-21] MEDS: GLUCOPHAGE PO SCH ×2 (08:38→16:54)
[2016-10-21] MEDS: NOVOLOG SUB-Q SCH ×4 (08:39→22:00)
[2016-10-21] MEDS: AMARYL PO SCH (10:28)
--- NOTE | 2016-10-21 11:47 | Progress Note ---
Assessment and Plan Assessment and plan: Diabetic left foot infection. Cellulitis and abscess. On Zosyn and Vancomycin. had surgery 10/19/16 - Incision, drainage and debridement. Now has wound vac on. For home wound vac and iv Vancomycin for 3 weeks. Diabetes mellitus type 2. Fingerstick glucose qac and hs. Continue Glucophage, Amaryl Sepsis due to diabetic left foot infection. Continue Zosyn and Vancomycin iv. ID Physician following. Hyponatremia. Elevated BP. If persists may start anti-hypertensive. He denies history of hypertension. DVT prophylaxis. Heparin subcut Full code status History Interval history: Mild pain left foot on and off, no fever, Post I and D and debridement left foot. Hospitalist Physical - Physical exam Narrative exam: Gen: not in acute distress HEENT: normocephalic,atraumatic Neck :supple, no JVD Lungs: clear to auscultation bilaterally, no crackles no wheezes Heart: S1 and S2 regular, no murmurs no gallops, Abdomen: soft nontender, nondistended, normal bowel sounds Extremities:left foot infection, covered with dressing, no clubbing or cyanosis Neuro: Awake alert oriented x 3, no focal signs Psych: Normal mood - Constitutional Vitals: Temp Pulse Resp BP Pulse Ox 97.9 F 74 18 175/99 97 10/21/16 08:00 10/21/16 08:00 10/21/16 08:00 10/21/16 08:00 10/21/16 08:00 General appearance: Present: no acute distress Results - Labs CBC & Chem 7: 10/20/16 07:05 10/20/16 07:05 Labs: Laboratory Last Values WBC 4.8 K/mm3 (4.5-11.0) 10/20/16 07:05 RBC 4.22 M/mm3 (3.65-5.03) 10/20/16 07:05 Hgb 11.9 gm/dl (11.8-15.2) 10/20/16 07:05 Hct 37.3 % (35.5-45.6) 10/20/16 07:05 MCV 88 fl (84-94) 10/20/16 07:05 MCH 28 pg (28-32) 10/20/16 07:05 MCHC 32 % (32-34) 10/20/16 07:05 RDW 13.4 % (13.2-15.2) 10/20/16 07:05 Plt Count 321 K/mm3 (140-440) 10/20/16 07:05 Lymph % (Auto) 8.1 % (13.4-35.0) L 10/17/16 04:51 [place] % (Auto) 9.8 % (0.0-7.3) H 10/17/16 04:51 Eos % (Auto) 1.0 % (0.0-4.3) 10/17/16 04:51 Baso % (Auto) 0.4 % (0.0-1.8) 10/17/16 04:51 Lymph # 0.9 K/mm3 (1.2-5.4) L 10/17/16 04:51 [place] # 1.1 K/mm3 (0.0-0.8) H 10/17/16 04:51 Eos # 0.1 K/mm3 (0.0-0.4) 10/17/16 04:51 Baso # 0.0 K/mm3 (0.0-0.1) 10/17/16 04:51 Seg Neutrophils % 80.7 % (40.0-70.0) H 10/17/16 04:51 Seg Neutrophils # 9.0 K/mm3 (1.8-7.7) H 10/17/16 04:51 ESR 87 mm/Hr (0-20) 10/17/16 19:54 PT 15.7 Sec. (12.2-14.9) H 10/14/16 16:45 INR 1.26 (0.87-1.13) H 10/14/16 16:45 VBG pH 7.386 (7.320-7.420) 10/14/16 16:45 Sodium 145 mmol/L (137-145) D 10/20/16 07:05 Potassium 3.9 mmol/L (3.6-5.0) 10/20/16 07:05 Chloride 106.6 mmol/L (98-107) 10/20/16 07:05 Carbon Dioxide 26 mmol/L (22-30) 10/20/16 07:05 Anion Gap 16 mmol/L 10/20/16 07:05 BUN 9 mg/dL (9-20) 10/20/16 07:05 Creatinine 0.9 mg/dL (0.8-1.5) 10/20/16 07:05 Estimated GFR > 60 ml/min 10/20/16 07:05 BUN/Creatinine Ratio 10.00 % 10/20/16 07:05 Glucose 145 mg/dL (75-100) H 10/20/16 07:05 POC Glucose 159 (70-105) H 10/19/16 22:36 Hemoglobin A1c 8.6 % (4-6) H 10/14/16 20:40 Lactic Acid 1.1 mmol/L (0.7-2.0) 10/14/16 20:40 Calcium 8.6 mg/dL (8.4-10.2) 10/20/16 07:05 Total Bilirubin 0.8 mg/dL (0.1-1.2) 10/14/16 16:45 AST 17 units/L (5-40) 10/14/16 16:45 ALT 13 units/L (7-56) 10/14/16 16:45 Alkaline Phosphatase 90 units/L (35-129) 10/14/16 16:45 C-Reactive Protein 16.30 mg/dL (0.00-1.30) H 10/17/16 19:54 Total Protein 8.1 g/dL (6.3-8.2) 10/14/16 16:45 Albumin 3.4 g/dL (3.9-5) L 10/14/16 16:45 Albumin/Globulin Ratio 0.7 % 10/14/16 16:45 Urine Color Yellow (Yellow) 10/14/16 21:00 Urine Turbidity Clear (Clear) 10/14/16 21:00 Urine pH 5.0 (5.0-7.0) 10/14/16 21:00 Ur Specific [place] 1.010 (1.003-1.030) 10/14/16 21:00 Urine Protein <15 mg/dl mg/dL (Negative) 10/14/16 21:00 Urine Glucose (UA) >=500 mg/dL (Negative) 10/14/16 21:00 Urine Ketones 20 mg/dL (Negative) 10/14/16 21:00 Urine Blood Neg (Negative) 10/14/16 21:00 Urine Nitrite Neg (Negative) 10/14/16 21:00 Urine Bilirubin Neg (Negative) 10/14/16 21:00 Urine Urobilinogen < 2.0 mg/dL (<2.0) 10/14/16 21:00 Ur Leukocyte Esterase Neg (Negative) 10/14/16 21:00 Urine WBC (Auto) < 1.0 /HPF (0.0-6.0) 10/14/16 21:00 Urine RBC (Auto) < 1.0 /HPF (0.0-6.0) 10/14/16 21:00 Vancomycin Trough 24.0 ug/mL (5.0-20.0) H 10/20/16 07:05
--- NOTE | 2016-10-21 18:48 | Progress Note ---
Subjective Date of service: 10/21/16 Principal diagnosis: left foot abscess/necrosis Interval history: No new complaints today. PE VS - afebrile.. Chest - good air entry CVS - s1s2 abd - bs+ extr - left foot dressed post surgery. LABS wound culture - peptostreptococcus. Reviewed. See lab section. ASSESSMENT 1. Sepsis 2. Left foot abscess/gangrene s/p debridement. 3. dm2 RECOMMENDATION 1. Continue vancomycin. 2. Arrange home wound care and iv vancomycin 1g every 12hourly for 3weeks. OR evaluate for LTAC. Objective - Constitutional Vitals: Vital Signs Temp Pulse Resp BP Pulse Ox 97.9 F 74 18 175/99 97 10/21/16 08:00 10/21/16 08:00 10/21/16 08:00 10/21/16 08:00 10/21/16 08:00 Temperature -Last 24 Hours Temperature 97.9 F Temperature 98.1 F - Labs CBC & Chem 7: 10/20/16 07:05 10/20/16 07:05
[2016-10-21] MEDS: NORVASC PO SCH (20:11)
[2016-10-21] MEDS: NACL 0.9% 1000 ML 1,000 ML IV SCH (20:13)
[2016-10-21] MEDS: ZOCOR PO SCH (22:00)
[2016-10-22] MEDS: ZOSYN/NS 4.5GM/100ML 4.5 GM/100 ML VIAL IV SCH ×3 (03:55→20:35)
[2016-10-22] MEDS: HEPARIN SUB-Q SCH ×3 (06:26→22:17)
[2016-10-22] MEDS: VANCOMYCIN/NS 1 GM/250 ML 1 GM/250 ML BAG IV SCH ×3 (06:26→22:17)
[2016-10-22] MEDS: PERCOCET 5/325 PO PRN ×3 (06:28→18:46)
[2016-10-22] MEDS: NOVOLOG SUB-Q SCH ×4 (09:58→22:25)
[2016-10-22] MEDS: GLUCOPHAGE PO SCH ×2 (10:50→17:27)
[2016-10-22] MEDS: AMARYL PO SCH (10:50)
[2016-10-22] MEDS: NORVASC PO SCH (10:50)
--- NOTE | 2016-10-22 11:00 | Progress Note ---
Assessment and Plan Assessment and plan: Diabetic left foot infection. Cellulitis and abscess with gangrene. On Zosyn and Vancomycin. had surgery 10/19/16 - Incision, drainage and debridement. Now has wound vac on. For home wound vac and iv Vancomycin for 3 weeks. I discussed with case management. Arrangements and approval may be confirmed by Monday. Diabetes mellitus type 2. Fingerstick glucose qac and hs. Continue Glucophage, Amaryl Sepsis due to diabetic left foot infection. Continue Zosyn and Vancomycin iv. ID Physician following. Hyponatremia. This is now resolved.Sodium 145 . Elevated BP. He denies history of hypertension. Start Norvasc. DVT prophylaxis. Heparin subcut Full code status History Interval history: Patient with left foot abscess with gangrene, s/p I and D mild pain left foot, no fever Hospitalist Physical - Physical exam Narrative exam: Gen: not in acute distress, not obese HEENT: normocephalic,atraumatic Neck :supple, no JVD Lungs: clear to auscultation bilaterally, no crackles no wheezes Heart: S1 and S2 regular, no murmurs no gallops, Abdomen: soft nontender, nondistended, normal bowel sounds Extremities:left foot infection, covered with dressing, no clubbing or cyanosis Neuro: Awake alert oriented x 3, no focal signs Psych: Normal mood - Constitutional Vitals: Temp Pulse Resp BP Pulse Ox 98.0 F 72 20 148/81 95 10/22/16 07:50 10/22/16 10:50 10/22/16 07:50 10/22/16 10:50 10/22/16 07:50 General appearance: Present: no acute distress Results - Labs CBC & Chem 7: 10/20/16 07:05 10/20/16 07:05 Labs: Laboratory Last Values WBC 4.8 K/mm3 (4.5-11.0) 10/20/16 07:05 RBC 4.22 M/mm3 (3.65-5.03) 10/20/16 07:05 Hgb 11.9 gm/dl (11.8-15.2) 10/20/16 07:05 Hct 37.3 % (35.5-45.6) 10/20/16 07:05 MCV 88 fl (84-94) 10/20/16 07:05 MCH 28 pg (28-32) 10/20/16 07:05 MCHC 32 % (32-34) 10/20/16 07:05 RDW 13.4 % (13.2-15.2) 10/20/16 07:05 Plt Count 321 K/mm3 (140-440) 10/20/16 07:05 Lymph % (Auto) 8.1 % (13.4-35.0) L 10/17/16 04:51 [place] % (Auto) 9.8 % (0.0-7.3) H 10/17/16 04:51 Eos % (Auto) 1.0 % (0.0-4.3) 10/17/16 04:51 Baso % (Auto) 0.4 % (0.0-1.8) 10/17/16 04:51 Lymph # 0.9 K/mm3 (1.2-5.4) L 10/17/16 04:51 [place] # 1.1 K/mm3 (0.0-0.8) H 10/17/16 04:51 Eos # 0.1 K/mm3 (0.0-0.4) 10/17/16 04:51 Baso # 0.0 K/mm3 (0.0-0.1) 10/17/16 04:51 Seg Neutrophils % 80.7 % (40.0-70.0) H 10/17/16 04:51 Seg Neutrophils # 9.0 K/mm3 (1.8-7.7) H 10/17/16 04:51 ESR 87 mm/Hr (0-20) 10/17/16 19:54 PT 15.7 Sec. (12.2-14.9) H 10/14/16 16:45 INR 1.26 (0.87-1.13) H 10/14/16 16:45 VBG pH 7.386 (7.320-7.420) 10/14/16 16:45 Sodium 145 mmol/L (137-145) D 10/20/16 07:05 Potassium 3.9 mmol/L (3.6-5.0) 10/20/16 07:05 Chloride 106.6 mmol/L (98-107) 10/20/16 07:05 Carbon Dioxide 26 mmol/L (22-30) 10/20/16 07:05 Anion Gap 16 mmol/L 10/20/16 07:05 BUN 9 mg/dL (9-20) 10/20/16 07:05 Creatinine 0.9 mg/dL (0.8-1.5) 10/20/16 07:05 Estimated GFR > 60 ml/min 10/20/16 07:05 BUN/Creatinine Ratio 10.00 % 10/20/16 07:05 Glucose 145 mg/dL (75-100) H 10/20/16 07:05 POC Glucose 159 (70-105) H 10/19/16 22:36 Hemoglobin A1c 8.6 % (4-6) H 10/14/16 20:40 Lactic Acid 1.1 mmol/L (0.7-2.0) 10/14/16 20:40 Calcium 8.6 mg/dL (8.4-10.2) 10/20/16 07:05 Total Bilirubin 0.8 mg/dL (0.1-1.2) 10/14/16 16:45 AST 17 units/L (5-40) 10/14/16 16:45 ALT 13 units/L (7-56) 10/14/16 16:45 Alkaline Phosphatase 90 units/L (35-129) 10/14/16 16:45 C-Reactive Protein 16.30 mg/dL (0.00-1.30) H 10/17/16 19:54 Total Protein 8.1 g/dL (6.3-8.2) 10/14/16 16:45 Albumin 3.4 g/dL (3.9-5) L 10/14/16 16:45 Albumin/Globulin Ratio 0.7 % 10/14/16 16:45 Urine Color Yellow (Yellow) 10/14/16 21:00 Urine Turbidity Clear (Clear) 10/14/16 21:00 Urine pH 5.0 (5.0-7.0) 10/14/16 21:00 Ur Specific [place] 1.010 (1.003-1.030) 10/14/16 21:00 Urine Protein <15 mg/dl mg/dL (Negative) 10/14/16 21:00 Urine Glucose (UA) >=500 mg/dL (Negative) 10/14/16 21:00 Urine Ketones 20 mg/dL (Negative) 10/14/16 21:00 Urine Blood Neg (Negative) 10/14/16 21:00 Urine Nitrite Neg (Negative) 10/14/16 21:00 Urine Bilirubin Neg (Negative) 10/14/16 21:00 Urine Urobilinogen < 2.0 mg/dL (<2.0) 10/14/16 21:00 Ur Leukocyte Esterase Neg (Negative) 10/14/16 21:00 Urine WBC (Auto) < 1.0 /HPF (0.0-6.0) 10/14/16 21:00 Urine RBC (Auto) < 1.0 /HPF (0.0-6.0) 10/14/16 21:00 Vancomycin Trough 24.0 ug/mL (5.0-20.0) H 10/20/16 07:05
--- NOTE | 2016-10-22 19:41 | Progress Note ---
Subjective Date of service: 10/22/16 Principal diagnosis: left foot abscess/necrosis Interval history: No new complaints today. PE VS - afebrile.. Chest - good air entry CVS - s1s2 abd - bs+ extr - left foot dressed post surgery. LABS wound culture - peptostreptococcus. Reviewed. See lab section. ASSESSMENT 1. Sepsis 2. Left foot abscess/gangrene s/p debridement. 3. dm2 RECOMMENDATION 1. Continue vancomycin. 2. iv vancomycin 1g every 12hourly for 3weeks in LTAC. Objective - Constitutional Vitals: Vital Signs Temp Pulse Resp BP Pulse Ox 97.8 F 79 20 146/79 95 10/22/16 15:30 10/22/16 15:30 10/22/16 15:30 10/22/16 15:30 10/22/16 07:50 Temperature -Last 24 Hours Temperature 97.8 F Temperature 98.0 F Temperature 98.5 F - Labs CBC & Chem 7: 10/20/16 07:05 10/20/16 07:05
[2016-10-22] MEDS: ZOCOR PO SCH (22:16)
[2016-10-23] MEDS: PERCOCET 5/325 PO PRN ×4 (01:07→22:14)
[2016-10-23] MEDS: ZOSYN/NS 4.5GM/100ML 4.5 GM/100 ML VIAL IV SCH ×3 (03:21→22:15)
[2016-10-23] MEDS: VANCOMYCIN/NS 1 GM/250 ML 1 GM/250 ML BAG IV SCH ×3 (05:46→23:34)
[2016-10-23] MEDS: NACL 0.9% 1000 ML 1,000 ML IV SCH (05:55)
[2016-10-23] MEDS: HEPARIN SUB-Q SCH ×3 (05:57→22:15)
[2016-10-23] MEDS: NOVOLOG SUB-Q SCH ×4 (08:30→23:33)
[2016-10-23] MEDS: TYLENOL PO PRN (11:12)
[2016-10-23] MEDS: AMARYL PO SCH (11:12)
[2016-10-23] MEDS: NORVASC PO SCH (11:13)
[2016-10-23] MEDS: GLUCOPHAGE PO SCH ×2 (11:13→17:51)
--- NOTE | 2016-10-23 16:30 | Progress Note ---
Assessment and Plan Assessment and plan: Diabetic left foot ulcer, abscess with gas gangrene. On Zosyn and Vancomycin. had surgery 10/19/16 - Incision, drainage and debridement. Now has wound vac on. For home wound vac and iv Vancomycin for 3 weeks. I discussed with case management. Arrangements and approval may be confirmed by Monday. Diabetes mellitus type 2. Fingerstick glucose qac and hs. Continue Glucophage, Amaryl Sepsis due to diabetic left foot infection. Continue Zosyn and Vancomycin iv. ID Physician following. Hyponatremia. This is now resolved.Sodium 145 . Elevated BP. He denies history of hypertension. Started on Norvasc. DVT prophylaxis. Heparin subcut Full code status History Interval history: Patient with left foot abscess with gangrene, s/p I and D less pain left foot, no fever, no vomiting Hospitalist Physical - Physical exam Narrative exam: Gen: not in acute distress, not obese HEENT: normocephalic,atraumatic Neck :supple, no JVD Lungs: clear to auscultation bilaterally, no crackles no wheezes Heart: S1 and S2 regular, no murmurs no gallops, Abdomen: soft nontender, nondistended, normal bowel sounds Extremities:left foot infection, covered with dressing, no clubbing or cyanosis Neuro: Awake alert oriented x 3, no focal signs Psych: Normal mood - Constitutional Vitals: Temp Pulse Resp BP Pulse Ox 98.0 F 76 20 164/92 99 10/23/16 16:20 10/23/16 16:20 10/23/16 16:20 10/23/16 16:20 10/23/16 08:27 General appearance: Present: no acute distress Results - Labs CBC & Chem 7: 10/20/16 07:05 10/20/16 07:05 Labs: Laboratory Last Values WBC 4.8 K/mm3 (4.5-11.0) 10/20/16 07:05 RBC 4.22 M/mm3 (3.65-5.03) 10/20/16 07:05 Hgb 11.9 gm/dl (11.8-15.2) 10/20/16 07:05 Hct 37.3 % (35.5-45.6) 10/20/16 07:05 MCV 88 fl (84-94) 10/20/16 07:05 MCH 28 pg (28-32) 10/20/16 07:05 MCHC 32 % (32-34) 10/20/16 07:05 RDW 13.4 % (13.2-15.2) 10/20/16 07:05 Plt Count 321 K/mm3 (140-440) 10/20/16 07:05 Lymph % (Auto) 8.1 % (13.4-35.0) L 10/17/16 04:51 [place] % (Auto) 9.8 % (0.0-7.3) H 10/17/16 04:51 Eos % (Auto) 1.0 % (0.0-4.3) 10/17/16 04:51 Baso % (Auto) 0.4 % (0.0-1.8) 10/17/16 04:51 Lymph # 0.9 K/mm3 (1.2-5.4) L 10/17/16 04:51 [place] # 1.1 K/mm3 (0.0-0.8) H 10/17/16 04:51 Eos # 0.1 K/mm3 (0.0-0.4) 10/17/16 04:51 Baso # 0.0 K/mm3 (0.0-0.1) 10/17/16 04:51 Seg Neutrophils % 80.7 % (40.0-70.0) H 10/17/16 04:51 Seg Neutrophils # 9.0 K/mm3 (1.8-7.7) H 10/17/16 04:51 ESR 87 mm/Hr (0-20) 10/17/16 19:54 PT 15.7 Sec. (12.2-14.9) H 10/14/16 16:45 INR 1.26 (0.87-1.13) H 10/14/16 16:45 VBG pH 7.386 (7.320-7.420) 10/14/16 16:45 Sodium 145 mmol/L (137-145) D 10/20/16 07:05 Potassium 3.9 mmol/L (3.6-5.0) 10/20/16 07:05 Chloride 106.6 mmol/L (98-107) 10/20/16 07:05 Carbon Dioxide 26 mmol/L (22-30) 10/20/16 07:05 Anion Gap 16 mmol/L 10/20/16 07:05 BUN 9 mg/dL (9-20) 10/20/16 07:05 Creatinine 0.9 mg/dL (0.8-1.5) 10/20/16 07:05 Estimated GFR > 60 ml/min 10/20/16 07:05 BUN/Creatinine Ratio 10.00 % 10/20/16 07:05 Glucose 145 mg/dL (75-100) H 10/20/16 07:05 POC Glucose 159 (70-105) H 10/19/16 22:36 Hemoglobin A1c 8.6 % (4-6) H 10/14/16 20:40 Lactic Acid 1.1 mmol/L (0.7-2.0) 10/14/16 20:40 Calcium 8.6 mg/dL (8.4-10.2) 10/20/16 07:05 Total Bilirubin 0.8 mg/dL (0.1-1.2) 10/14/16 16:45 AST 17 units/L (5-40) 10/14/16 16:45 ALT 13 units/L (7-56) 10/14/16 16:45 Alkaline Phosphatase 90 units/L (35-129) 10/14/16 16:45 C-Reactive Protein 16.30 mg/dL (0.00-1.30) H 10/17/16 19:54 Total Protein 8.1 g/dL (6.3-8.2) 10/14/16 16:45 Albumin 3.4 g/dL (3.9-5) L 10/14/16 16:45 Albumin/Globulin Ratio 0.7 % 10/14/16 16:45 Urine Color Yellow (Yellow) 10/14/16 21:00 Urine Turbidity Clear (Clear) 10/14/16 21:00 Urine pH 5.0 (5.0-7.0) 10/14/16 21:00 Ur Specific [place] 1.010 (1.003-1.030) 10/14/16 21:00 Urine Protein <15 mg/dl mg/dL (Negative) 10/14/16 21:00 Urine Glucose (UA) >=500 mg/dL (Negative) 10/14/16 21:00 Urine Ketones 20 mg/dL (Negative) 10/14/16 21:00 Urine Blood Neg (Negative) 10/14/16 21:00 Urine Nitrite Neg (Negative) 10/14/16 21:00 Urine Bilirubin Neg (Negative) 10/14/16 21:00 Urine Urobilinogen < 2.0 mg/dL (<2.0) 10/14/16 21:00 Ur Leukocyte Esterase Neg (Negative) 10/14/16 21:00 Urine WBC (Auto) < 1.0 /HPF (0.0-6.0) 10/14/16 21:00 Urine RBC (Auto) < 1.0 /HPF (0.0-6.0) 10/14/16 21:00 Vancomycin Trough 24.0 ug/mL (5.0-20.0) H 10/20/16 07:05
--- NOTE | 2016-10-23 19:32 | Progress Note ---
Subjective Date of service: 10/23/16 Principal diagnosis: left foot abscess/necrosis Interval history: No new complaints today. PE VS - afebrile.. Chest - good air entry CVS - s1s2 abd - bs+ extr - left foot dressed post surgery. LABS wound culture - peptostreptococcus. Reviewed. See lab section. ASSESSMENT 1. Sepsis 2. Left foot abscess/gangrene s/p debridement. 3. dm2 RECOMMENDATION 1. iv vancomycin 1g every 12hourly for 3weeks in LTAC. Objective - Constitutional Vitals: Vital Signs Temp Pulse Resp BP Pulse Ox 98.0 F 76 20 164/92 99 10/23/16 16:20 10/23/16 16:20 10/23/16 16:20 10/23/16 16:20 10/23/16 08:27 Temperature -Last 24 Hours Temperature 98.0 F Temperature 98.2 F Temperature 98.1 F Temperature 98.1 F - Labs CBC & Chem 7: 10/20/16 07:05 10/20/16 07:05
[2016-10-23] MEDS: ZOCOR PO SCH (22:14)
[2016-10-24] MEDS: PERCOCET 5/325 PO PRN ×2 (05:25→11:43)
[2016-10-24] MEDS: HEPARIN SUB-Q SCH ×2 (05:25→14:27)
[2016-10-24] MEDS: ZOSYN/NS 4.5GM/100ML 4.5 GM/100 ML VIAL IV SCH ×2 (05:25→14:20)
[2016-10-24] MEDS: NACL 0.9% 1000 ML 1,000 ML IV SCH (05:26)
[2016-10-24] MEDS: VANCOMYCIN/NS 1 GM/250 ML 1 GM/250 ML BAG IV SCH ×2 (06:10→14:24)
[2016-10-24] MEDS: NOVOLOG SUB-Q SCH ×2 (08:16→12:00)
[2016-10-24] MEDS: GLUCOPHAGE PO SCH (08:27)
[2016-10-24 09:49] VITALS: BP 161/85
--- NOTE | 2016-10-24 10:06 | Discharge Summary ---
Providers - Providers Date of Admission: 10/14/16 20:19 Date of discharge: 10/24/16 Attending physician: ELICEO STROUD 10/14/16 20:33 Consult to Physician [CONS] Routine Consulting Provider: PENNY RICH Reason For Exam: diabetic foot Notified:: please call 10/17/16 08:56 Consult to Physician [CONS] Routine Consulting Provider: DENISE NOLASCO Reason For Exam: abx recommendation Place consult to:: stock preparation supervisor ID Notified:: office Phone number called:: [phone] Was contact made?: Yes If yes, spoke with:: simeon Time called:: 10:52 10/19/16 15:37 Consult to Case Management [CONS] Routine Services Needed at Discharge: Wound Vac Notified:: paula 10/20/16 09:59 Consult to PICC Line RN [CONS] Routine Reason For Exam: iv access Type Line:: PICC Primary care physician: BIOMEDICAL ENGINEER Hospitalization Condition: Fair Disposition: DC/TX ANOTHER TYPE HEALTH[facility]ARE - Discharge Diagnoses (1) Abscess of left foot Status: Acute (2) Sepsis affecting skin Status: Acute (3) Type 2 diabetes mellitus Status: Chronic Qualifiers: Diabetes mellitus complication status: with hyperglycemia Diabetes mellitus complication detail: D Diabetic retinopathy severity: D Proliferative retinopathy type: P Diabetes mellitus macular edema: D Diabetes mellitus residential insulin use: without residential use Laterality: L Chronic kidney disease stage: C Qualified Code(s): E11.65 - Type 2 diabetes mellitus with hyperglycemia Exam - Constitutional Vitals: Temp Pulse Resp BP Pulse Ox 98.2 F 80 20 161/85 97 10/24/16 08:48 10/24/16 08:48 10/24/16 08:48 10/24/16 08:48 10/24/16 08:48 Plan Activity: advance as tolerated Diet: low fat, low cholesterol, low salt, diabetic Additional Instructions: 1.Transfer to LTAC Follow up with: PRIMARY CARE, [Primary Care Provider] - 7 Days
[2016-10-24] MEDS ORDERED: NORVASC PO SCH (10:36)
[2016-10-24] MEDS: NORVASC PO SCH (10:45)
[2016-10-24] MEDS: AMARYL PO SCH (11:45)
[2016-10-24] MEDS ORDERED: NACL 0.9% 1000 ML ONE (15:26)
[2016-10-24] MEDS ORDERED: HEPARIN/ 0.45% NACL-25,000 UNIT/500 ML 25,000 UNIT/500 ML BAG ONE (16:03)
[2016-10-24] MEDS ORDERED: HEPARIN 10,000 UNITS/10 ML ONE (16:07)
[2016-10-24] MEDS ORDERED: AMIDATE IV ONE (16:10)
[2016-10-24] MEDS ORDERED: HEPARIN/ 0.45% NACL-25,000 UNIT/500 ML 25,000 UNIT/500 ML BAG IV SCH (17:00)
--- NOTE | 2016-10-24 17:52 | Death Summary ---
Summary - Providers Consults: 10/14/16 20:33 Consult to Physician [CONS] Routine Consulting Provider: PENNY RICH Reason For Exam: diabetic foot Notified:: please call 10/17/16 08:56 Consult to Physician [CONS] Routine Consulting Provider: DENISE NOLASCO Reason For Exam: abx recommendation Place consult to:: rehab/pre vocational counselor ID Notified:: office Phone number called:: [phone] Was contact made?: Yes If yes, spoke with:: simeon Time called:: 10:52 10/19/16 15:37 Consult to Case Management [CONS] Routine Services Needed at Discharge: Wound Vac Notified:: cw 10/20/16 09:59 Consult to PICC Line RN [CONS] Routine Reason For Exam: iv access Type Line:: PICC 10/24/16 16:20 Consult to Physician [CONS] Routine Consulting Provider: DELIA RUSSELL Reason For Exam: acute resp failure Place consult to:: Dr. Victoria Attending: ELICEO STROUD - summary Date of admission: 10/14/16 20:19 - Final diagnosis (1) Abscess of left foot Note: Final diagnosis: (2) Sepsis affecting skin Note: Final diagnosis: (3) Type 2 diabetes mellitus Qualifiers: Diabetes mellitus complication status: with hyperglycemia Diabetes mellitus complication detail: D Diabetic retinopathy severity: D Proliferative retinopathy type: P Diabetes mellitus macular edema: D Diabetes mellitus custodial insulin use: without custodial use Laterality: L Chronic kidney disease stage: C Qualified Code(s): E11.65 - Type 2 diabetes mellitus with hyperglycemia Note: Final diagnosis:
[2016-10-24] MEDS ORDERED: ADRENALIN IV ONE (21:09)
[2016-10-24] MEDS ORDERED: ATROPINE ONE (21:09)
[2016-10-24] MEDS ORDERED: ADRENALIN ONE (21:09)
[2016-10-24] MEDS ORDERED: SODIUM BICARBONATE IV ONE (21:09)
[2016-10-25] MEDS ORDERED: NORVASC PO SCH (10:00)
--- NOTE | 2016-10-27 09:13 | Death Note ---
Note Date of : 10/24/16 Time of : 16:53 - Preliminary Cause of (problem) (1) Acute massive pulmonary embolism Preliminary cause of (2) Abscess of left foot Preliminary cause of (3) Sepsis affecting skin Preliminary cause of (4) Type 2 diabetes mellitus Qualifiers: Diabetes mellitus complication status: with diabetic arthropathy Diabetic retinopathy severity: D Proliferative retinopathy type: P Diabetes mellitus macular edema: D Diabetes mellitus fpc insulin use: without fpc use Laterality: L Chronic kidney disease stage: C Preliminary cause of
== END 2016-10-24 16:53 | DRG 853 ==
LOC: ED 14:56 → 3A 20:19 → CC1 10-24 16:40
PROVIDERS: ADMIT Internal Medicine; ATTEND Internal Medicine
PROC: 0KBW0ZZ Excision of Left Foot Muscle, Open Approach (ICD-10-PCS; principal; 2016-10-18)
PROC: 02HV33Z Insertion of Infusion Device into Superior Vena Cava, Percutaneous Approach (ICD-10-PCS; 2016-10-20)
DX: A41.9 Sepsis, unspecified organism (principal); A48.0 Gas gangrene; I26.99 Other pulmonary embolism without acute cor pulmonale; L03.116 Cellulitis of left lower limb; E87.1 Hypo-osmolality and hyponatremia; L02.612 Cutaneous abscess of left foot; J45.909 Unspecified asthma, uncomplicated; F03.90 Unspecified dementia, unspecified severity, without behavioral disturbance, psychotic disturbance, mood disturbance, and anxiety; E11.621 Type 2 diabetes mellitus with foot ulcer; L97.529 Non-pressure chronic ulcer of other part of left foot with unspecified severity; E78.5 Hyperlipidemia, unspecified; E11.40 Type 2 diabetes mellitus with diabetic neuropathy, unspecified; E11.65 Type 2 diabetes mellitus with hyperglycemia; Z83.3 Family history of diabetes mellitus; Z89.422 Acquired absence of other left toe(s); Z79.4 Long term (current) use of insulin; Z79.899 Other long term (current) drug therapy
CPT/HCPCS: 36415; 71010; 80048; 80053; 80202; 81001; 82140; 82805; 82962; 83036; 85025; 85027; 85610; 85652; 86140; 87040; 87075; 87086; 87116; 88305; 93005; 93010; 93922; 93925; 96361; 96365; 96375; A4217; A9577; J0153; J0171; J0360; J0461; J1100; J1170; J1644; J1815; J2250; J2270; J2405; J2543; J2704; J3370; J7030; J7040; Q0164